=== PATIENT | male | born 1935 | race Caucasian/White ===

== ENCOUNTER 2021-01-01 11:17 | Inpatient (IN) | payer MEDICARE, OTHER ==
[2021-01-01 12:05] LABS: HCT 38.1 % (39.0-53.0); HGB 12.2 gm/dL (13.0-17.5); MCH 29.5 pg (25.0-35.0); MCHC 31.9 g/dL (31.0-37.0); MCV 92.5 fL (80.0-100.0); Mean Platelet Volume 7.2; Platelet Count 224 k/uL (150-450); RBC 4.12 m/uL (4.30-5.90); RDW 15.1 % (11.5-15.5); WBC 8.4 k/uL (3.8-10.6)
--- NOTE | 2021-01-01 12:21 | XR ---
EXAMINATION TYPE: XR foot limited RT DATE OF EXAM: 01/01/2021 COMPARISON: NONE HISTORY: 85-year-old male worsening cellulitis, concern for osteomyelitis. TECHNIQUE: 2 views FINDINGS: Marked diffuse soft tissue swelling. Small plantar heel spur. Vascular calcifications. There appears to be a nondisplaced fracture at the base of the fifth metatarsal. Allowing for the osteopenia, no de finite focal area of lytic destruction is identified. IMPRESSION: 1. Allowing for the marked osteopenia, no definite focal areas of lytic destruction are identified to suggest osteomyelitis on these 2 views. 2. Marked generalized soft tissue swelling. 3. Nondisplaced fracture at the base of the fifth metatarsal.
[2021-01-01 12:22] LABS: Albumin 3.2 g/dL (3.5-5.0); C Reactive Protein 6.5 mg/dL (<1.0); Calcium 8.6 mg/dL (8.4-10.2); Potassium 4.2 mmol/L (3.5-5.1); Total Bilirubin 0.4 mg/dL (0.2-1.3); Total Protein 6.4 g/dL (6.3-8.2)
[2021-01-01] MEDS ORDERED: traMADol 50 MG TAB PO STA (12:49)
--- NOTE | 2021-01-01 12:49 | ED ---
Wound/Laceration HPI - General Source: patient, EMS Mode of arrival: EMS Limitations: physical limitation <Alysa Wright - Last Filed: 01/01/21 13:23> <Santos Hernandez - Last Filed: 01/01/21 13:31> - General Chief Complaint: Wound/Laceration Stated Complaint: Infection Time Seen by Provider: 01/01/21 11:24 - History of Present Illness Initial Comments: Patient is an 85-year-old male, history of hypertension, kidney disease, presenting to the emergency department via EMS from [facility] on the [place] for worsening cellulitis of his right foot. Patient states he recovered from covid a few weeks ago and has been dealing with bilateral lower leg cellulitis. Patient was at [facility] for this cellulitis, receiving IV antibiotics in the past. He was admitted to [facility] on 12/23/20. Follows with Dr. Mcintosh. He has been on Augmentin for the last 9 days. Nurses at [facility] state that the infection in the right foot has worsened over the past 1-2 days as well as developing a strong odor. Patient is having pain in the medial aspect of the right foot. He denies any fevers, no chest pain or shortness of breath, no abdominal pain or nausea or vomiting. He has no further complaints at this time. Upon arrival to the ER, his vital signs are stable. Of note, patient is hard of hearing. (Alysa Wright) - Related Data Home Medications Medication Instructions Recorded Confirmed Acetaminophen Tab [Tylenol] 650 mg PO Q6H PRN 01/01/21 01/01/21 Amoxic-Pot Clav 875-125Mg 1 tab PO BID 01/01/21 01/01/21 [Augmentin 875-125] Aspirin EC [Ecotrin Low Dose] 81 mg PO DAILY 01/01/21 01/01/21 Furosemide [Lasix] 20 mg PO BID@0900,1700 01/01/21 01/01/21 Gabapentin [Neurontin] 100 mg PO BID 01/01/21 01/01/21 Magnesium Hydroxide [Milk of 2,400 mg PO DAILY PRN 01/01/21 01/01/21 Magnesia] Metoprolol Tartrate [Lopressor] 37.5 mg PO BID@0900,1700 01/01/21 01/01/21 Multivitamins, Thera [Multivitamin 1 tab PO DAILY 01/01/21 01/01/21 (formulary)] Pravastatin Sodium [Pravachol] 10 mg PO DAILY 01/01/21 01/01/21 amLODIPine [Norvasc] 10 mg PO DAILY 01/01/21 01/01/21 Allergies Allergy/AdvReac Type Severity Reaction Status Date / Time No Known Allergies Allergy Verified 01/01/21 12:46 Review of Systems ROS Other: All systems not noted in ROS Statement are negative. <Alysa Wright - Last Filed: 01/01/21 13:23> ROS Other: All systems not noted in ROS Statement are negative. <Santos Hernandez - Last Filed: 01/01/21 13:31> ROS Statement: Those systems with pertinent positive or pertinent negative responses have been documented in the HPI. Past Medical History Past Medical History: Hearing Disorder / Deafness, Hypertension, Renal Disease Additional Past Medical History / Comment(s): cellulitis right leg, [place]', right tibial fracture History of Any Multi-Drug Resistant Organisms: None Reported Past Surgical History: Bowel Resection, Hernia Repair, Orthopedic Surgery Additional Past Surgical History / Comment(s): Right shoulder, Right hip, bowel resection with colostomy reversal Past Psychological History: No Psychological Hx Reported Smoking Status: Former smoker Past Alcohol Use History: None Reported Past Drug Use History: None Reported <Alysa Wright - Last Filed: 01/01/21 13:23> General Exam Limitations: physical limitation <Alysa Wright - Last Filed: 01/01/21 13:23> - General Exam Comments Initial Comments: GENERAL: Patient is well-developed and well-nourished. Patient is nontoxic and in no acute distress. HEAD: Atraumatic, normocephalic. EYES: Pupils equal round and reactive to light, extraocular movements intact, sclera anicteric, conjunctiva are normal. Eyelids were unremarkable. ENT: TMs normal, nares patent, oropharynx clear without exudates. Moist mucous membranes. NECK: Normal range of motion, supple without lymphadenopathy or JVD. LUNGS: Unlabored respirations. Breath sounds clear to auscultation bilaterally and equal. No wheezes rales or rhonchi. HEART: Regular rate and rhythm without murmurs, rubs or gallops. ABDOMEN: Soft, nontender, normoactive bowel sounds. No guarding, no rebound. No masses appreciated. : Deferred MUSCULOSKELETAL: Left lower extremity is within normal limits, no signs of infection or pain at this time. Right lower extremity, has some erythema starting at the right lower leg extending into the right foot. Patient has significant pain with palpation of the right foot, cellulitis. No clubbing or cyanosis. NEUROLOGICAL: Patient is alert and oriented x 3. Motor and sensory are also intact. Cranial nerves II through XII grossly intact. Symmetrical smile. Normal speech, normal gait. PSYCH: Normal mood, normal affect. SKIN: Warm, Dry, normal turgor. Patient has cellulitis present on the right foot, multiple little ulcerations noted around the foot and toes. He does have a weak, bilateral dorsal pedis pulses. (Alysa Wright) Course Vital Signs 01/01/21 01/01/21 11:20 12:45 Temperature 98.1 F Pulse Rate 78 74 Respiratory 18 18 Rate Blood Pressure 162/75 147/68 O2 Sat by Pulse 98 97 Oximetry Medical Decision Making - Lab Data Result diagrams: 01/01/21 11:49 01/01/21 11:49 <Alysa Wright - Last Filed: 01/01/21 13:23> - Lab Data Result diagrams: 01/01/21 11:49 01/01/21 11:49 <Santos Hernandez - Last Filed: 01/01/21 13:31> - Medical Decision Making Patient is a 85-year-old male here via EMS from [facility] the [place] for worsening cellulitis of his right foot. He was previously admitted to [facility], admitted at [facility] and 12/23/2020. He is currently on day 9 of Augmentin, nurses state the infection seems to be worse over the past few days. Strong odor. He does have weak dorsal pedis pulses bilaterally. No fevers, his white count is stable at 8.4, ESR is 40, CRP is 6.5. Ultrasound is negative for DVT of the right lower extremity. Patient will be admitted for right foot cellulitis, failed outpatient treatment. We will start antibiotics. We will consult Dr. Mcintosh. Patient accepted by Dr. Hill. Case discussed with Dr. Hernandez. (Alysa Wright) Patient reevaluated and reexamined by myself, Dr. Hernandez. I agree with PAs findings. This includes diagnostic interpretation and treatment plan. (Santos Hernandez) - Lab Data Lab Results 01/01/21 01/01/21 01/01/21 Range/Units 11:49 11:49 11:49 WBC 8.4 (3.8-10.6) k/uL RBC 4.12 L (4.30-5.90) m/uL Hgb 12.2 L (13.0-17.5) gm/dL Hct 38.1 L (39.0-53.0) % MCV 92.5 (80.0-100.0) fL MCH 29.5 (25.0-35.0) pg MCHC 31.9 (31.0-37.0) g/dL RDW 15.1 (11.5-15.5) % Plt Count 224 (150-450) k/uL MPV 7.2 Neutrophils % (Manual) 70 % Lymphocytes % (Manual) 18 % Monocytes % (Manual) 11 % Eosinophils % (Manual) 1 % Neutrophils # (Manual) 5.88 (1.3-7.7) k/uL Lymphocytes # (Manual) 1.51 (1.0-4.8) k/uL Monocytes # (Manual) 0.92 (0-1.0) k/uL Eosinophils # (Manual) 0.08 (0-0.7) k/uL Nucleated RBCs 0 (0-0) /100 WBC Manual Slide Review Performed RBC Morphology Normal ESR 40 H (0-15) mm/hr Sodium 135 L (137-145) mmol/L Potassium 4.2 (3.5-5.1) mmol/L Chloride 101 (98-107) mmol/L Carbon Dioxide 27 (22-30) mmol/L Anion Gap 7 mmol/L BUN 22 H (9-20) mg/dL Creatinine 1.07 (0.66-1.25) mg/dL Est GFR (CKD-EPI)AfAm 73 (>60 ml/min/1.73 sqM) Est GFR (CKD-EPI)NonAf 63 (>60 ml/min/1.73 sqM) Glucose 106 H (74-99) mg/dL Plasma Lactic Acid Gerardo 1.6 (0.7-2.0) mmol/L Calcium 8.6 (8.4-10.2) mg/dL Total Bilirubin 0.4 (0.2-1.3) mg/dL AST 28 (17-59) U/L ALT 44 (4-49) U/L Alkaline Phosphatase 98 (38-126) U/L C-Reactive Protein 6.5 H (<1.0) mg/dL Total Protein 6.4 (6.3-8.2) g/dL Albumin 3.2 L (3.5-5.0) g/dL Disposition Is patient prescribed a controlled substance at d/c from ED?: No Decision Date: 01/01/21 Decision Time: 13:24 <Alysa Wright - Last Filed: 01/01/21 13:23> <Santos Hernandez - Last Filed: 01/01/21 13:31> Clinical Impression: Cellulitis of right foot, Failure of outpatient treatment Disposition: ADMITTED IP TO THIS [facility] Condition: Stable Referrals: Raji Hernández MD [Primary Care Provider] - 1-2 days
[2021-01-01 12:58] LABS: Eosinophils # (M) 0.08 k/uL (0-0.7); Lymphocytes # (M) 1.51 k/uL (1.0-4.8); Monocytes # (M) 0.92 k/uL (0-1.0); Neutrophils # (M) 5.88 k/uL (1.3-7.7); Neutrophils % (M) 70 %; Nucleated Red Blood Cells 0 /100 WBC (0-0); Total Cells Counted 100
[2021-01-01 13:06] LABS: Erythrocyte Sedimentation Rate 40 mm/hr (0-15)
--- NOTE | 2021-01-01 13:23 | US ---
EXAMINATION TYPE: US venous doppler duplex LE RT DATE OF EXAM: 01/01/2021 1:14 PM COMPARISON: NONE CLINICAL HISTORY: 85-year-old male Worsening cellulitis right foot, edema. Cellulitis right foot x fe w months. SIDE PERFORMED: Right TECHNIQUE: The lower extremity deep venous system is examined utilizing real time linear array sonog john with graded compression, doppler sonography and color-flow sonography. FINDINGS: VESSELS IMAGED: Common Femoral Vein Deep Femoral Vein Greater Saphenous Vein * Femoral Vein Popliteal Vein Small Saphenous Vein * Proximal Calf Veins (* superficial vessels) Right Leg: Negative for DVT IMPRESSION: No evidence for DVT within the right lower extremity imaged from the groin to the upper calf. Prominent subcutaneous edema noted at and below the knee.
[2021-01-01] MEDS ORDERED: traMADol 50 MG TAB PO PRN (13:27)
[2021-01-01] MEDS ORDERED: ACETAMINOPHEN TAB 325 MG TAB PO PRN (13:27)
[2021-01-01] MEDS ORDERED: NALOXONE 0.4 MG/ML 1 ML VIAL IV PRN (13:27)
[2021-01-01] MEDS ORDERED: cefTRIAXone IN SWFI 1,000 MG/10 ML SYRINGE IVP STA (13:28)
[2021-01-01] MEDS ORDERED: VANCOMYCIN IV PER PHARMACY 1 EACH MISC MISCELLANE PRN (13:28)
[2021-01-01] MEDS ORDERED: VANCOMYCIN 1,500 MG in SODIUM CHLORIDE 0.9% 250 ML IVPB ONE (14:00)
[2021-01-01] MEDS ORDERED: MAGNESIUM HYDROXIDE 2,400 MG/10 ML CUP PO PRN (16:06)
[2021-01-01] MEDS: FUROSEMIDE 20 MG TAB PO SCH (17:09)
[2021-01-01] MEDS: METOPROLOL TARTRATE 12.5 MG TAB PO SCH (17:10)
[2021-01-01] MEDS: IBUPROFEN 400 MG TAB PO PRN (17:13)
[2021-01-01] MEDS: GABAPENTIN 100 MG CAP PO SCH (21:34)
[2021-01-01] MEDS: HEPARIN SODIUM,PORCINE/PF 5,000 UNIT/0.5 ML SYRINGE SQ SCH (23:31)
--- NOTE | 2021-01-01 23:56 | P.HPIM ---
History of Present Illness H&P Date: 01/01/21 Chief Complaint: Right foot infection Patient is a 85-year-old male with a known history of hearing disorder/deafness, hypertension, hyperlipidemia, recent history of COVID-19 infection was sent to hospital from [facility] on the [place] due to worsening right foot redness, cellulitis and swelling. Patient was recalled from COVID-19 infection recently. Patient was was admitted to [facility] due to right lower extremity cellulitis. He was continued on IV antibiotics and p sent to [facility] care [facility]. Currently being continued on antibiotics in the form of Augmentin. For the past 1 to 2 days right lower extremity swelling redness is worsening and developing strong odor as per nursing staff. Patient is also having increased pain. Was sent to ER for evaluation. Otherwise patient does not have any fever or chills. No chest pain or shortness. No cough or sputum production. On admission blood pressure is 162/75 pulse is a 78 afebrile and pulse ox 98% on room air. Venous Doppler showed no evidence of DVT in the right lower extremity from the groin to the upper calf. Laboratory data showed WBC 8.4 hemoglobin 12.2 platelets 224 ESR 40 Sodium 135 potassium 4.2 bicarb 27 BUN 22 and creatinine 1.07 CRP 6.5 Albumin 3.2 Foot x-ray showed mild osteopenia. No definite focal areas of lytic destruction are identified to suggest osteomyelitis on those 2 views. Marked generalized soft tissue swelling. Nondisplaced fracture of the base of the fifth metatarsal. Review of Systems Constitutional: Patient denies any fever or chills . No generalized weakness or weight loss. Abdomen: Patient denied nausea vomiting and diarrhea and abdominal pain. Cardiovascular: Patient denies any chest pain or short of breath no palpitations. Respiratory: patient denied any cough or sputum production. No shortness of breath Neurologic: Patient denied any numbness or tingling headache. Musculoskeletal: Patient denies any complaints of joint swelling or deformity.Right foot pain \Complete review of systems could not be obtained from the patient except as per HPI Past Medical History Past Medical History: Hearing Disorder / Deafness, Hyperlipidemia, Hypertension, Renal Disease Additional Past Medical History / Comment(s): cellulitis right leg, [place]- no ai irineo, right tibial fracture, covid19, atherosclerosis heart disease, hypoxia w/respiratory failure, CAD, patient alert and oriented x4- with periods of confusion, abdominal heria History of Any Multi-Drug Resistant Organisms: None Reported Past Surgical History: Bowel Resection, Hernia Repair, Orthopedic Surgery Additional Past Surgical History / Comment(s): Right shoulder, Right hip, bowel resection with colostomy reversal. Past Anesthesia/Blood Transfusion Reactions: No Reported Reaction Past Psychological History: No Psychological Hx Reported Smoking Status: Former smoker Past Alcohol Use History: None Reported Past Drug Use History: None Reported - Past Family History Father History Unknown: Yes Mother History Unknown: Yes Medications and Allergies Home Medications Medication Instructions Recorded Confirmed Type Acetaminophen Tab [Tylenol] 650 mg PO Q6H PRN 01/01/21 01/01/21 History Amoxic-Pot Clav 875-125Mg 1 tab PO BID 01/01/21 01/01/21 History [Augmentin 875-125] Aspirin EC [Ecotrin Low Dose] 81 mg PO DAILY 01/01/21 01/01/21 History Furosemide [Lasix] 20 mg PO BID@0900,1700 01/01/21 01/01/21 History Gabapentin [Neurontin] 100 mg PO BID 01/01/21 01/01/21 History Magnesium Hydroxide [Milk of 2,400 mg PO DAILY PRN 01/01/21 01/01/21 History Magnesia] Metoprolol Tartrate [Lopressor] 37.5 mg PO BID@0900,1700 01/01/21 01/01/21 History Multivitamins, Thera [Multivitamin 1 tab PO DAILY 01/01/21 01/01/21 History (formulary)] Pravastatin Sodium [Pravachol] 10 mg PO DAILY 01/01/21 01/01/21 History amLODIPine [Norvasc] 10 mg PO DAILY 01/01/21 01/01/21 History Allergies Allergy/AdvReac Type Severity Reaction Status Date / Time No Known Allergies Allergy Verified 01/01/21 12:46 Physical Exam Vitals: Vital Signs Temp Pulse Pulse Resp BP BP Pulse Ox 01/01/21 20:00 97.6 F 65 17 160/62 96 01/01/21 12:45 74 18 147/68 97 01/01/21 11:20 98.1 F 78 18 162/75 98 Intake and Output 01/01/21 01/01/21 01/01/21 06:59 14:59 22:59 Output Total 500 Balance -500 Output: Urine/Stool Mix 500 Other: Weight 99.79 kg 99.79 kg PHYSICAL EXAMINATION: Patient is lying in the bed comfortably, no acute distress, awake alert and oriented..Hard of hearing. HEENT: Normocephalic. Neck is supple. Pupils reactive. Nostrils clear. Oral cavity is moist. Ears reveal no drainage. Neck reveals no JVD, carotid bruits, or thyromegaly. CHEST EXAMINATION: Trachea is central. Symmetrical expansion. Bibasilar diminished sounds. No wheezing no rhonchi or crackles.. CARDIAC: Normal S1, S2 with no gallops. No murmurs ABDOMEN: Soft. Bowel sounds normal. No organomegaly. No abdominal bruits. Extremities: Bilateral lower extremity swelling. Right lower extremity with more swelling and redness extending up to the knee with some drainage noted at the right foot. Tender to palpation. No clubbing or cyanosis Neurologically awake, alert, oriented x3 with well-coordinated movements. No focal deficits noted Skin: No rash or skin lesions. Psychiatric: Coperative. Nonsuicidal Musculoskeletal: No joint swelling or deformity. Normal range of motion. Results CBC & Chem 7: 01/03/21 06:10 01/03/21 06:10 Labs: Abnormal Lab Results - Last 24 Hours (Table) 01/01/21 01/01/21 Range/Units 11:49 11:49 RBC 4.12 L (4.30-5.90) m/uL Hgb 12.2 L (13.0-17.5) gm/dL Hct 38.1 L (39.0-53.0) % ESR 40 H (0-15) mm/hr Sodium 135 L (137-145) mmol/L BUN 22 H (9-20) mg/dL Glucose 106 H (74-99) mg/dL C-Reactive Protein 6.5 H (<1.0) mg/dL Albumin 3.2 L (3.5-5.0) g/dL Thrombosis Risk Factor Assmnt - DVT/VTE Prophylaxis DVT/VTE Prophylaxis: Pharmacologic Prophylaxis ordered - Choose All That Apply Any of the Below Risk Factors Present?: Yes Each Factor Represents 1 point: Swollen legs (current) Each Risk Factor Represents 3 Points: Age 75 years or older Thrombosis Risk Factor Assessment Total Risk Factor Score: 4 Thrombosis Risk Factor Assessment Level: Moderate Risk Assessment and Plan Assessment: Right lower extremity extensive cellulitis. Failed outpatient antibiotic therapy. Nondisplaced fracture of the base of the fifth metatarsal. Recent history of COVID-19 infection Hearing disorder/deafness Hypertension Hyperlipidemia Previous history of smoking DVT prophylaxis with heparin subcu Plan: Patient will be continued on antibiotics in the form of Vanco. Wound cultures will be sent. ID will be consulted. Continue with home blood pressure medications and follow-up CBC and BMP tomorrow. Continue to follow closely and further recommendations based on the clinical course. Time with Patient: Greater than 30
[2021-01-02] MEDS: IBUPROFEN 400 MG TAB PO PRN ×2 (02:27→12:57)
[2021-01-02] MEDS ORDERED: VANCOMYCIN 1,500 MG in SODIUM CHLORIDE 0.9% 250 ML IVPB SCH (06:00)
[2021-01-02] MEDS: ASPIRIN 81 MG PO SCH (09:46)
[2021-01-02] MEDS: MULTIVITAMINS, THERA 1 EACH TAB PO SCH (09:46)
[2021-01-02] MEDS: METOPROLOL TARTRATE 12.5 MG TAB PO SCH ×2 (09:46→15:55)
[2021-01-02] MEDS: amLODIPine 10 MG TAB PO SCH (09:46)
[2021-01-02] MEDS: HEPARIN SODIUM,PORCINE/PF 5,000 UNIT/0.5 ML SYRINGE SQ SCH ×2 (09:46→15:55)
[2021-01-02] MEDS: GABAPENTIN 100 MG CAP PO SCH ×2 (09:46→21:28)
[2021-01-02] MEDS: PRAVASTATIN SODIUM 20 MG TAB PO SCH (09:46)
[2021-01-02] MEDS: FUROSEMIDE 20 MG TAB PO SCH ×2 (09:46→15:55)
[2021-01-02] MEDS ORDERED: NYSTAT-TRIAMCIN 100,000-0.1 UNIT/GM-% CREAM 30 GM TUBE TOPICAL SCH (21:00)
--- NOTE | 2021-01-02 21:59 | P.CONS ---
History of Present Illness - Reason for Consult Consult date: 01/02/21 right foot cellulitis Requesting physician: Jacky Hill - Chief Complaint right foot pain , swelling redness x few days - History of Present Illness Patient is 85-year-old male was recently admitted at [facility] and treated for right foot wound and cellulitis patient subsequent discharged to the [facility]. Patient has been brought to [facility] ER yesterday with concern for worsening cellulitis of his right foot nursing at the [facility] right foot was getting worse for the last 2 days and patient developing a strong odor to it patient complaining of pain in the medial aspect of his right foot to be more of a dull aching 3-4 out of 10 in radiation patient denies any chest pain shortness of breath or cough abdominal pain or diarrhea on arrival to the ER the patient was afebrile and no fever has been recorded subsequently patient did have a normal white count creatinine was normal at 1.0 700% of normal holt PCR came back negative patient did have a cultures obtained from the right foot patient was started on vancomycin infectious was consulted for further management of antibiotic therapy patient presented with a very good historian so most information has been extracted from review the chart and talking nursing staff. Review of Systems Positive point has been mentioned in HPI rest of the systems are negative Past Medical History Past Medical History: Hearing Disorder / Deafness, Hyperlipidemia, Hypertension, Renal Disease Additional Past Medical History / Comment(s): cellulitis right leg, [place]- no aides, right tibial fracture, covid19, atherosclerosis heart disease, hypoxia w/respiratory failure, CAD, patient alert and oriented x4- with periods of confusion, abdominal heria History of Any Multi-Drug Resistant Organisms: None Reported Past Surgical History: Bowel Resection, Hernia Repair, Orthopedic Surgery Additional Past Surgical History / Comment(s): Right shoulder, Right hip, bowel resection with colostomy reversal. Past Anesthesia/Blood Transfusion Reactions: No Reported Reaction Past Psychological History: No Psychological Hx Reported Smoking Status: Former smoker Past Alcohol Use History: None Reported Past Drug Use History: None Reported - Past Family History Father History Unknown: Yes Mother History Unknown: Yes Medications and Allergies Home Medications Medication Instructions Recorded Confirmed Type Acetaminophen Tab [Tylenol] 650 mg PO Q6H PRN 01/01/21 01/01/21 History Amoxic-Pot Clav 875-125Mg 1 tab PO BID 01/01/21 01/01/21 History [Augmentin 875-125] Aspirin EC [Ecotrin Low Dose] 81 mg PO DAILY 01/01/21 01/01/21 History Furosemide [Lasix] 20 mg PO BID@0900,1700 01/01/21 01/01/21 History Gabapentin [Neurontin] 100 mg PO BID 01/01/21 01/01/21 History Magnesium Hydroxide [Milk of 2,400 mg PO DAILY PRN 01/01/21 01/01/21 History Magnesia] Metoprolol Tartrate [Lopressor] 37.5 mg PO BID@0900,1700 01/01/21 01/01/21 History Multivitamins, Thera [Multivitamin 1 tab PO DAILY 01/01/21 01/01/21 History (formulary)] Pravastatin Sodium [Pravachol] 10 mg PO DAILY 01/01/21 01/01/21 History amLODIPine [Norvasc] 10 mg PO DAILY 01/01/21 01/01/21 History Allergies Allergy/AdvReac Type Severity Reaction Status Date / Time No Known Allergies Allergy Verified 01/01/21 12:46 Physical Exam Vitals: Vital Signs Temp Pulse Resp BP Pulse Ox 01/02/21 12:24 97.6 F 56 L 18 142/61 98 01/02/21 08:00 73 18 01/02/21 04:44 98.2 F 73 18 162/71 97 01/01/21 20:00 97.6 F 65 17 160/62 96 Intake and Output 01/02/21 01/02/21 01/02/21 06:59 14:59 22:59 Intake Total 240 Balance 240 Intake: Oral 240 Other: Voiding Method Bedside Commode Urinal # Voids 2 3 # Bowel Movements 1 GENERAL DESCRIPTION: Elderly male lying in bed, no distress. No tachypnea or accessory muscle of respiration use. HEENT: Shows Pallor , no scleral icterus. Oral mucous membrane is dry. NECK: Trachea central, no thyromegaly. LUNGS: Unlabored breathing. Clear to auscultation anteriorly. No wheeze or crackle. HEART: S1, S2, regular rate and rhythm. ABDOMEN: Soft, no tenderness , guarding or rigidity EXTREMITIES: Right foot with superficial ulceration and swelling redness minimal drainage. SKIN: No rash, no masses palpable. NEUROLOGICAL: The patient is awake, alert, oriented x2, mood and affect normal. Results CBC & Chem 7: 01/01/21 11:49 01/02/21 06:01 Labs: Microbiology - Last 24 Hours (Table) 01/01/21 11:50 Blood Culture - Preliminary Blood No Growth after 24 hours 01/01/21 16:30 Gram Stain - Preliminary Foot - Right Wound Culture - Preliminary 01/01/21 16:30 Anaerobic Culture - Preliminary Foot - Right Assessment and Plan Assessment: patient with right foot cellulitis this patient who did have diffuse swelling redness and some superficial ulceration and has been outpatient oral Augmentin therapy with concern for possible resistant gram-positive or gram-negative pathogen) did have a component of fungal dermatitis (1) Cellulitis of right foot Current Visit: Yes Status: Acute Code(s): L03.115 - CELLULITIS OF RIGHT LOWER LIMB SNOMED Code(s): 271408010 (2) Failure of outpatient treatment Current Visit: Yes Status: Acute Code(s): Z78.9 - OTHER SPECIFIED HEALTH STATUS SNOMED Code(s): 571216472 Plan: 1-vancomycin pharmacy to dose her with a target trough of 15 while watching her kidney function and Vanco trough closely. 2-local wound care with Mycolog cream twice daily We will follow on clinical condition and cultures to further adjust medication if needed Thank you for this consultation we will follow the patient along with you Time with Patient: Greater than 30
[2021-01-02] MEDS ORDERED: VANCOMYCIN 1,750 MG in SODIUM CHLORIDE 0.9% 500 ML 500 ML IVPB SCH (22:00)
[2021-01-02] MEDS: NYSTATIN 100,000UNIT/GM CREAM 30 GM TUBE TOPICAL SCH (22:10)
[2021-01-02] MEDS: TRIAMCINOLONE 0.1% CREAM 80 GM TUBE TOPICAL SCH (22:10)
[2021-01-02] MEDS: CEFEPIME 2 GM in SODIUM CHLORIDE 0.9% 100 ML IVPB SCH (22:30)
[2021-01-03] MEDS: HEPARIN SODIUM,PORCINE/PF 5,000 UNIT/0.5 ML SYRINGE SQ SCH ×4 (00:53→23:07)
[2021-01-03 06:44] LABS: HCT 36.1 % (39.0-53.0); HGB 12.4 gm/dL (13.0-17.5); MCH 31.4 pg (25.0-35.0); MCHC 34.4 g/dL (31.0-37.0); MCV 91.1 fL (80.0-100.0); Mean Platelet Volume 6.8; Platelet Count 216 k/uL (150-450); RBC 3.96 m/uL (4.30-5.90); RDW 14.5 % (11.5-15.5); WBC 6.5 k/uL (3.8-10.6)
[2021-01-03 07:33] LABS: Basophils # (M) 0.13 k/uL (0-0.2); Eosinophils # (M) 0.59 k/uL (0-0.7); Lymphocytes # (M) 2.15 k/uL (1.0-4.8); Monocytes # (M) 0.78 k/uL (0-1.0); Neutrophils # (M) 2.86 k/uL (1.3-7.7); Neutrophils % (M) 44 %; Nucleated Red Blood Cells 0 /100 WBC (0-0); Total Cells Counted 100
[2021-01-03] MEDS: amLODIPine 10 MG TAB PO SCH (09:12)
[2021-01-03] MEDS: PRAVASTATIN SODIUM 20 MG TAB PO SCH (09:12)
[2021-01-03] MEDS: GABAPENTIN 100 MG CAP PO SCH ×2 (09:12→20:58)
[2021-01-03] MEDS: FUROSEMIDE 20 MG TAB PO SCH ×2 (09:12→16:11)
[2021-01-03] MEDS: MULTIVITAMINS, THERA 1 EACH TAB PO SCH (09:13)
[2021-01-03] MEDS: CEFEPIME 2 GM in SODIUM CHLORIDE 0.9% 100 ML IVPB SCH ×2 (09:13→20:57)
[2021-01-03] MEDS: ASPIRIN 81 MG PO SCH (09:13)
[2021-01-03] MEDS: METOPROLOL TARTRATE 12.5 MG TAB PO SCH ×2 (09:13→16:11)
[2021-01-03] MEDS: NYSTATIN 100,000UNIT/GM CREAM 30 GM TUBE TOPICAL SCH ×2 (09:14→20:58)
[2021-01-03] MEDS: TRIAMCINOLONE 0.1% CREAM 80 GM TUBE TOPICAL SCH ×2 (09:14→20:58)
[2021-01-03 11:28] LABS: African American GFR (CKD) 70.1 (60.0-200.0); Anion Gap 5.2 mmol/L (4.00-12.00); BUN/Creat Ratio 18.18 Ratio (12.00-20.00); Calcium 8.7 mg/dL (8.7-10.3); Carbon Dioxide 28.8 mmol/L (21.6-31.8); Non-African American GFR(CKD) 60.5 (60.0-200.0); Potassium 4.1 mmol/L (3.5-5.5)
--- NOTE | 2021-01-03 16:55 | PN ---
PROGRESS NOTE DATE OF SERVICE: 01/03/2021 REASON FOR FOLLOWUP: Right foot cellulitis. INTERVAL HISTORY: The patient is currently afebrile. The patient mentioned not feeling better as far as is concerned. No chest pain, cough. No abdominal pain. No diarrhea. EXAMINATION: Blood pressure is 147/58, pulse of 59, temperature is 98, she is 93% on room air. General description: The patient is an elderly male up in the chair in no distress. Respiratory system: Unlabored breathing, clear to auscultation anteriorly. Heart S1, S2. Regular rate and rhythm. Abdomen soft, no tenderness. Right foot is currently drying out. Redness has decreased. No drainage. LABS: Hemoglobin is 12.1, white count 6.5. Wound culture showing Gram-negative bacilli and nonhemolytic strep. DIAGNOSTIC IMPRESSION AND PLAN: Patient with right foot ulceration, cellulitis, culture with gram-negative and not hemolytic strep. Antibiotic adjusted to cefepime. Local care with Mycolog cream. Avoid non-adhesive dressing and continue supportive care. MMODL / IJN: [id number] /
--- NOTE | 2021-01-04 01:23 | P.PN ---
Subjective Progress Note Date: 01/02/21 Principal diagnosis: Right lower extremity extensive cellulitis. Patient is a 85-year-old male with a known history of hearing disorder/deafness, hypertension, hyperlipidemia, recent history of COVID-19 infection was sent to hospital from [facility] on the leg due to worsening right foot redness, cellulitis and swelling. Patient was recalled from COVID-19 infection recently. Patient was was admitted to [facility] due to right lower extremity cellulitis. He was continued on IV antibiotics and p sent to [facility]. Currently being continued on antibiotics in the form of Augmentin. For the past 1 to 2 days right lower extremity swelling redness is worsening and developing strong odor as per nursing staff. Patient is also having increased pain. Was sent to ER for evaluation. Otherwise patient does not have any fever or chills. No chest pain or shortness. No cough or sputum production. On admission blood pressure is 162/75 pulse is a 78 afebrile and pulse ox 98% on room air. Venous Doppler showed no evidence of DVT in the right lower extremity from the groin to the upper calf. Laboratory data showed WBC 8.4 hemoglobin 12.2 platelets 224 ESR 40 Sodium 135 potassium 4.2 bicarb 27 BUN 22 and creatinine 1.07 CRP 6.5 Albumin 3.2 Foot x-ray showed mild osteopenia. No definite focal areas of lytic destruction are identified to suggest osteomyelitis on those 2 views. Marked generalized soft tissue swelling. Nondisplaced fracture of the base of the fifth metatarsal. 01/02/2021 Patient is currently resting in the bed comfortably. Still having right foot redness and swelling and weeping serous discharge. Patient has been afebrile. Continued on antibiotics in the form of vancomycin. Wound cultures are pending. No complaints of chest pain or shortness breath. No nausea vomiting or abdominal pain. Patient is tolerating oral diet. Laboratory tests showed creatinine 1.06 ID is on board. Continue with wound dressing. Current medications reviewed Objective - Vital Signs Vital signs: Vital Signs Temp 98.0 F 01/02/21 20:00 Pulse 56 L 01/02/21 20:00 Resp 16 01/02/21 20:00 BP 136/63 01/02/21 20:00 Pulse Ox 94 L 01/02/21 20:00 Intake & Output 01/02/21 01/02/21 01/03/21 06:59 18:59 06:59 Intake Total 240 Output Total 500 Balance -500 240 Intake: Oral 240 Output: Urine/Stool Mix 500 Other: Voiding Method Bedside Commode Bedside Commode Urinal Urinal # Voids 2 3 1 # Bowel Movements 1 1 - Exam PHYSICAL EXAMINATION: Patient is lying in the bed comfortably, no acute distress, awake alert and oriented..Hard of hearing. HEENT: Normocephalic. Neck is supple. Pupils reactive. Nostrils clear. Oral cavity is moist. Ears reveal no drainage. Neck reveals no JVD, carotid bruits, or thyromegaly. CHEST EXAMINATION: Trachea is central. Symmetrical expansion. Bibasilar diminished sounds. No wheezing no rhonchi or crackles.. CARDIAC: Normal S1, S2 with no gallops. No murmurs ABDOMEN: Soft. Bowel sounds normal. No organomegaly. No abdominal bruits. Extremities: Bilateral lower extremity swelling. Right lower extremity with mor e swelling and redness extending up to the knee with some drainage noted at the right foot. Tender to palpation. No clubbing or cyanosis Neurologically awake, alert, oriented x3 with well-coordinated movements. No focal deficits noted Skin: No rash or skin lesions. Psychiatric: Coperative. Nonsuicidal Musculoskeletal: No joint swelling or deformity. Normal range of motion. - Labs CBC & Chem 7: 01/03/21 06:10 01/03/21 06:10 Labs: Microbiology - Last 24 Hours (Table) 01/01/21 16:30 Gram Stain - Preliminary Foot - Right Wound Culture - Preliminary Gram Neg Bacilli Non Hemolytic Strep 01/01/21 11:50 Blood Culture - Preliminary Blood No Growth after 24 hours 01/01/21 16:30 Anaerobic Culture - Preliminary Foot - Right Assessment and Plan Assessment: Right lower extremity extensive cellulitis. Failed outpatient antibiotic therapy. Nondisplaced fracture of the base of the fifth metatarsal. Recent history of COVID-19 infection Hearing disorder/deafness Hypertension Hyperlipidemia Previous history of smoking DVT prophylaxis with heparin subcu Plan: Patient will be continued on antibiotics in the form ofvancomycin. Wound cultures will be sent. ID is following. Continue with home blood pressure medications and follow-up CBC and BMP tomorr ow. Continue to follow closely and further recommendations based on the clinical course. Time with Patient: Greater than 30
--- NOTE | 2021-01-04 01:32 | P.PN ---
Subjective Progress Note Date: 01/03/21 Principal diagnosis: Right lower extremity extensive cellulitis. Patient is a 85-year-old male with a known history of hearing disorder/deafness, hypertension, hyperlipidemia, recent history of COVID-19 infection was sent to hospital from [facility] on the leg due to worsening right foot redness, cellulitis and swelling. Patient was recalled from COVID-19 infection recently. Patient was was admitted to [facility] due to right lower extremity cellulitis. He was continued on IV antibiotics and p sent to [facility]. Currently being continued on antibiotics in the form of Augmentin. For the past 1 to 2 days right lower extremity swelling redness is worsening and developing strong odor as per nursing staff. Patient is also having increased pain. Was sent to ER for evaluation. Otherwise patient does not have any fever or chills. No chest pain or shortness. No cough or sputum production. On admission blood pressure is 162/75 pulse is a 78 afebrile and pulse ox 98% on room air. Venous Doppler showed no evidence of DVT in the right lower extremity from the groin to the upper calf. Laboratory data showed WBC 8.4 hemoglobin 12.2 platelets 224 ESR 40 Sodium 135 potassium 4.2 bicarb 27 BUN 22 and creatinine 1.07 CRP 6.5 Albumin 3.2 Foot x-ray showed mild osteopenia. No definite focal areas of lytic destruction are identified to suggest osteomyelitis on those 2 views. Marked generalized soft tissue swelling. Nondisplaced fracture of the base of the fifth metatarsal. 01/02/2021 Patient is currently resting in the bed comfortably. Still having right foot redness and swelling and weeping serous discharge. Patient has been afebrile. Continued on antibiotics in the form of vancomycin. Wound cultures are pending. No complaints of chest pain or shortness breath. No nausea vomiting or abdominal pain. Patient is tolerating oral diet. Laboratory tests showed creatinine 1.06 ID is on board. Continue with wound dressing. 01/03/2021 Patient was admitted to the hospital due to right foot cellulitis and failed outpatient antibiotic therapy. Patient was continued on vancomycin. Wound culture showed Pseudomonas species. Antibiotics changed to cefepime now. ID is following. Foot swelling and redness is improving. Continue with the dressing changes. Patient has been afebrile. Laboratory data showed WBC 6.5 hemoglobin 12.4 and platelets 216 BUN 20 and creatinine 1.1 Current medications reviewed. Current medications reviewed Objective - Vital Signs Vital signs: Vital Signs Temp 99.0 F 01/03/21 20:00 Pulse 65 01/03/21 20:00 Resp 16 01/03/21 20:00 BP 151/64 01/03/21 20:00 Pulse Ox 97 01/03/21 20:00 Intake & Output 01/03/21 01/03/21 01/04/21 06:59 18:59 06:59 Intake Total 350 420 Balance 350 420 Intake: Intake, IV Titration 100 Amount Cefepime 2 gm In Sodium 100 Chloride 0.9% 100 ml @ 25 mls/hr IVPB Q12HR [facility] Rx #:[id number] Oral 250 420 Other: Voiding Method Bedside Commode Bedside Commode Urinal Urinal # Voids 2 3 1 # Bowel Movements 1 - Exam PHYSICAL EXAMINATION: Patient is lying in the bed comfortably, no acute distress, awake alert and oriented..Hard of hearing. HEENT: Normocephalic. Neck is supple. Pupils reactive. Nostrils clear. Oral cavity is moist. Ears reveal no drainage. Neck reveals no JVD, carotid bruits, or thyromegaly. CHEST EXAMINATION: Trachea is central. Symmetrical expansion. Bibasilar diminished sounds. No wheezing no rhonchi or crackles.. CARDIAC: Normal S1, S2 with no gallops. No murmurs ABDOMEN: Soft. Bowel sounds normal. No organomegaly. No abdominal bruits. Extremities: Right foot redness and swelling. Mild tenderness. Improving. No purulent discharge noted. Right foot is wrapped. No clubbing or cyanosis Neurologically awake, alert, oriented x3 with well-coordinated movements. No focal deficits noted Skin: No rash or skin lesions. Psychiatric: Coperative. Nonsuicidal Musculoskeletal: No joint swelling or deformity. Normal range of motion. - Labs CBC & Chem 7: 01/03/21 06:10 01/03/21 06:10 Labs: Abnormal Lab Results - Last 24 Hours (Table) 01/03/21 Range/Units 06:10 RBC 3.96 L (4.30-5.90) m/uL Hgb 12.4 L (13.0-17.5) gm/dL Hct 36.1 L (39.0-53.0) % Microbiology - Last 24 Hours (Table) 01/01/21 16:30 Gram Stain - Preliminary Foot - Right Wound Culture - Preliminary Pseudomonas aeruginosa Non Hemolytic Strep 01/01/21 11:50 Blood Culture - Preliminary Blood No Growth after 48 hours Assessment and Plan Assessment: Right lower extremity extensive cellulitis. Failed outpatient antibiotic therapy. Nondisplaced fracture of the base of the fifth metatarsal. Recent history of COVID-19 infection Hearing disorder/deafness Hypertension Hyperlipidemia Previous history of smoking DVT prophylaxis with heparin subcu Plan: Patient will be continued cefepime with wound culture showing Pseudomonas.Vancomycin has been discontinued. ID is following. Continue with wound care and dressing changes. Continue with home blood pressure medications and follow-up CBC and BMP tomorrow. Continue to follow closely and further recommendations based on the clinical course. Time with Patient: Greater than 30
[2021-01-04 07:39] LABS: Basophils # (A) 0.1 k/uL (0-0.2); Basophils % (A) 1 %; Eosinophils # (A) 0.6 k/uL (0-0.7); Eosinophils % (A) 10 %; HCT 37.3 % (39.0-53.0); HGB 12.3 gm/dL (13.0-17.5); Lymphocytes # (A) 2.1 k/uL (1.0-4.8); Lymphocytes % (A) 35 %; MCH 30.6 pg (25.0-35.0); MCHC 33.1 g/dL (31.0-37.0); MCV 92.4 fL (80.0-100.0); Mean Platelet Volume 7.1; Monocytes # (A) 0.5 k/uL (0-1.0); Monocytes % (A) 8 %; Neutrophils # (A) 2.4 k/uL (1.3-7.7); Neutrophils % (A) 39 %; Platelet Count 220 k/uL (150-450); RBC 4.04 m/uL (4.30-5.90); RDW 15.1 % (11.5-15.5)
[2021-01-04] MEDS: HEPARIN SODIUM,PORCINE/PF 5,000 UNIT/0.5 ML SYRINGE SQ SCH ×3 (09:12→23:29)
[2021-01-04] MEDS: CEFEPIME 2 GM in SODIUM CHLORIDE 0.9% 100 ML IVPB SCH ×2 (09:13→20:05)
[2021-01-04] MEDS: MULTIVITAMINS, THERA 1 EACH TAB PO SCH (09:13)
[2021-01-04] MEDS: FUROSEMIDE 20 MG TAB PO SCH ×2 (09:13→16:36)
[2021-01-04] MEDS: amLODIPine 10 MG TAB PO SCH (09:13)
[2021-01-04] MEDS: GABAPENTIN 100 MG CAP PO SCH ×2 (09:13→20:05)
[2021-01-04] MEDS: ASPIRIN 81 MG PO SCH (09:13)
[2021-01-04] MEDS: PRAVASTATIN SODIUM 20 MG TAB PO SCH (09:16)
[2021-01-04] MEDS: METOPROLOL TARTRATE 12.5 MG TAB PO SCH ×2 (09:16→16:35)
[2021-01-04] MEDS: NYSTATIN 100,000UNIT/GM CREAM 30 GM TUBE TOPICAL SCH ×2 (09:17→19:30)
[2021-01-04] MEDS: TRIAMCINOLONE 0.1% CREAM 80 GM TUBE TOPICAL SCH ×2 (09:18→19:30)
[2021-01-04 10:32] LABS: Eosinophils # (M) 0.66 k/uL (0-0.7); Lymphocytes # (M) 1.68 k/uL (1.0-4.8); Monocytes # (M) 0.36 k/uL (0-1.0); Neutrophils % (M) 55 %; Nucleated Red Blood Cells 0 /100 WBC (0-0); Total Cells Counted 100
[2021-01-04 11:25] LABS: African American GFR (CKD) 78.6 (60.0-200.0); Anion Gap 4.6 mmol/L (4.00-12.00); Calcium 8.4 mg/dL (8.7-10.3); Carbon Dioxide 29.4 mmol/L (21.6-31.8); Non-African American GFR(CKD) 67.8 (60.0-200.0); Potassium 4.3 mmol/L (3.5-5.5)
--- NOTE | 2021-01-04 16:31 | P.GSCN ---
History of Present Illness History of present illness: 85-year-old gentleman came to the emergency room with cellulitis of the right foot. Patient has a covert positive few weeks ago patient has history of hypertension coronary artery disease and chronic kidney disease. Consulted for reevaluation of the right foot patient is under care of infectious disease for IV antibiotic and local wound care Neck examination neck is supple no bruit appreciated Chest is clear first and second sound present air entry is good and both lungs Abdomen soft nontender femoral 1+ PTDP not palpable right foot is warm no ischemic ulcer noted patient has a cellulitis and some dry scab present on the dorsal aspect of the foot Plan is we will use Dakin solution to rinse the right foot and covered with Kerlix daily for follow with you Past Medical History Past Medical History: Hearing Disorder / Deafness, Hyperlipidemia, Hypertension, Renal Disease Additional Past Medical History / Comment(s): cellulitis right leg, [place] JOLLA- no aides, right tibial fracture, covid19, atherosclerosis heart disease, hypoxia w/respiratory failure, CAD, patient alert and oriented x4- with periods of confusion, abdominal heria History of Any Multi-Drug Resistant Organisms: None Reported Past Surgical History: Bowel Resection, Hernia Repair, Orthopedic Surgery Additional Past Surgical History / Comment(s): Right shoulder, Right hip, bowel resection with colostomy reversal. Past Anesthesia/Blood Transfusion Reactions: No Reported Reaction Past Psychological History: No Psychological Hx Reported Smoking Status: Former smoker Past Alcohol Use History: None Reported Past Drug Use History: None Reported - Past Family History Father History Unknown: Yes Mother History Unknown: Yes Medications and Allergies Home Medications Medication Instructions Recorded Confirmed Type Acetaminophen Tab [Tylenol] 650 mg PO Q6H PRN 01/01/21 01/01/21 History Amoxic-Pot Clav 875-125Mg 1 tab PO BID 01/01/21 01/01/21 History [Augmentin 875-125] Aspirin EC [Ecotrin Low Dose] 81 mg PO DAILY 01/01/21 01/01/21 History Furosemide [Lasix] 20 mg PO BID@0900,1700 01/01/21 01/01/21 History Gabapentin [Neurontin] 100 mg PO BID 01/01/21 01/01/21 History Magnesium Hydroxide [Milk of 2,400 mg PO DAILY PRN 01/01/21 01/01/21 History Magnesia] Metoprolol Tartrate [Lopressor] 37.5 mg PO BID@0900,1700 01/01/21 01/01/21 History Multivitamins, Thera [Multivitamin 1 tab PO DAILY 01/01/21 01/01/21 History (formulary)] Pravastatin Sodium [Pravachol] 10 mg PO DAILY 01/01/21 01/01/21 History amLODIPine [Norvasc] 10 mg PO DAILY 01/01/21 01/01/21 History Allergies Allergy/AdvReac Type Severity Reaction Status Date / Time No Known Allergies Allergy Verified 01/01/21 12:46 Surgical - Exam Vital Signs Temp Pulse Resp BP Pulse Ox 98.1 F 78 18 162/75 98 01/01/21 11:20 01/01/21 11:20 01/01/21 11:20 01/01/21 11:20 01/01/21 11:20 Results - Labs 01/04/21 06:36 01/04/21 06:36 Abnormal Lab Results - Last 24 Hours (Table) 01/04/21 01/04/21 Range/Units 06:36 06:36 RBC 4.04 L (4.30-5.90) m/uL Hgb 12.3 L (13.0-17.5) gm/dL Hct 37.3 L (39.0-53.0) % Calcium 8.4 L (8.7-10.3) mg/dL Microbiology - Last 24 Hours (Table) 01/01/21 11:50 Blood Culture - Preliminary Blood No Growth after 72 hours 01/01/21 16:30 Gram Stain - Preliminary Foot - Right Wound Culture - Preliminary Pseudomonas aeruginosa Non Hemolytic Strep Diabetes panel 01/04/21 Range/Units 06:36 Sodium 141 (135-145) mmol/L Potassium 4.3 (3.5-5.5) mmol/L Chloride 107 (96-109) mmol/L Carbon Dioxide 29.4 (21.6-31.8) mmol/L BUN 18.0 (9.0-27.0) mg/dL Creatinine 1.0 (0.6-1.5) mg/dL Glucose 105 (70-110) mg/dL Calcium 8.4 L (8.7-10.3) mg/dL Calcium panel 01/04/21 Range/Units 06:36 Calcium 8.4 L (8.7-10.3) mg/dL Pituitary panel 01/04/21 Range/Units 06:36 Sodium 141 (135-145) mmol/L Potassium 4.3 (3.5-5.5) mmol/L Chloride 107 (96-109) mmol/L Carbon Dioxide 29.4 (21.6-31.8) mmol/L BUN 18.0 (9.0-27.0) mg/dL Creatinine 1.0 (0.6-1.5) mg/dL Glucose 105 (70-110) mg/dL Calcium 8.4 L (8.7-10.3) mg/dL Adrenal panel 01/04/21 Range/Units 06:36 Sodium 141 (135-145) mmol/L Potassium 4.3 (3.5-5.5) mmol/L Chloride 107 (96-109) mmol/L Carbon Dioxide 29.4 (21.6-31.8) mmol/L BUN 18.0 (9.0-27.0) mg/dL Creatinine 1.0 (0.6-1.5) mg/dL Glucose 105 (70-110) mg/dL Calcium 8.4 L (8.7-10.3) mg/dL
[2021-01-04] MEDS: SODIUM HYPOCHLORITE 0.25% 480 ML BOT MISCELLANE SCH (19:45)
--- NOTE | 2021-01-04 22:28 | PN ---
PROGRESS NOTE DATE OF SERVICE: 01/04/2021 REASON FOR FOLLOWUP: Right foot wound and cellulitis. INTERVAL HISTORY: The patient is currently afebrile. The patient mentioned his foot is getting better. Pain has decreased. No further drainage. No chest pain, shortness of breath or cough. No abdominal pain or diarrhea. PHYSICAL EXAMINATION: Blood pressure 144/66, pulse of 65, temperature 98.8. He is 95% on room air. General description is an elderly male lying in bed in no distress. RESPIRATORY SYSTEM: Unlabored breathing. Clear to auscultation anteriorly. HEART: S1, S2. Regular rate and rhythm. ABDOMEN: Soft. No tenderness. Right foot did have dry scaly changes. Redness has improved. No drainage. LABS: Hemoglobin is 12.8, white count 6.0, BUN of 18, creatinine 1.0. Local culture with pseudomonas and strep. DIAGNOSTIC IMPRESSION AND PLAN: Patient with right foot wound and cellulitis. Culture has grown pseudomonas. The patient is covered with cefepime. Local care switched over to the Dakin solution. Consultation with Vascular Surgery to make sure no evidence of any ischemic changes. We will monitor clinical course closely. MMODL / IJN: [id number] /
[2021-01-05] MEDS: ASPIRIN 81 MG PO SCH (08:24)
[2021-01-05] MEDS: amLODIPine 10 MG TAB PO SCH (08:24)
[2021-01-05] MEDS: FUROSEMIDE 20 MG TAB PO SCH ×2 (08:24→16:44)
[2021-01-05] MEDS: GABAPENTIN 100 MG CAP PO SCH ×2 (08:24→22:08)
[2021-01-05] MEDS: MULTIVITAMINS, THERA 1 EACH TAB PO SCH (08:24)
[2021-01-05] MEDS: CEFEPIME 2 GM in SODIUM CHLORIDE 0.9% 100 ML IVPB SCH (08:25)
[2021-01-05] MEDS: METOPROLOL TARTRATE 12.5 MG TAB PO SCH ×2 (08:25→16:44)
[2021-01-05] MEDS: HEPARIN SODIUM,PORCINE/PF 5,000 UNIT/0.5 ML SYRINGE SQ SCH ×3 (08:25→22:08)
[2021-01-05] MEDS: PRAVASTATIN SODIUM 20 MG TAB PO SCH (08:26)
[2021-01-05] MEDS: NYSTATIN 100,000UNIT/GM CREAM 30 GM TUBE TOPICAL SCH ×2 (08:27→22:10)
[2021-01-05] MEDS: TRIAMCINOLONE 0.1% CREAM 80 GM TUBE TOPICAL SCH ×2 (08:28→22:10)
[2021-01-05] MEDS: SODIUM HYPOCHLORITE 0.25% 480 ML BOT MISCELLANE SCH ×2 (11:02→22:09)
--- NOTE | 2021-01-05 14:53 | PN ---
PROGRESS NOTE DATE OF SERVICE: 01/05/2021 REASON FOR FOLLOWUP: Right foot wound and cellulitis. INTERVAL HISTORY: The patient is currently afebrile. The patient is breathing comfortably. Did mention slight improvement in the right foot. No chest pain, shortness of breath or cough. No abdominal pain or diarrhea. PHYSICAL EXAMINATION: Blood pressure 154/69, pulse of 62, temperature 98. He is 98% on room air. General description is an elderly male lying in bed in no distress. RESPIRATORY SYSTEM: Unlabored breathing, clear to auscultation anteriorly. HEART: S1, S2. Regular rate and rhythm. ABDOMEN: Soft, no tenderness. The right foot possible wound is currently drying out. Redness has resolved. No drainage. LABS: Hemoglobin is 12.3, white count 6.0. BUN of 18, creatinine 1.0. Local culture with Pseudomonas and Enterococcus faecalis. DIAGNOSTIC IMPRESSION AND PLAN: Patient with right foot wound with secondary cellulitis. Culture with multiple pathogen. Antibiotic will be switched over to Zosyn to cover for all the pathogens. Local care to continue with Dakin solution. Finish therapy with oral antibiotic. We will monitor his clinical course closely. MMODL / IJN: [id number] /
--- NOTE | 2021-01-05 15:48 | PN ---
PROGRESS NOTE DATE OF SERVICE: 01/04/2021 This is an 85-year-old white male with gangrene of the feet, severe cellulitis of the feet. Remains on IV antibiotics. Wound care with Dakin's sodium hypochlorite application to the legs. Remains on heparin, cefepime, antibiotics. Waiting for Dr. Mcintosh's recommendations. CARDIOVASCULAR: S1, S2. LUNGS: Clear. GI: Soft. HEMATOLOGY: Negative Homans. Extremities show black eschar with red scaly exudate on the entire foot on the left. It has grown Pseudomonas. He is covered cefepime and Dakin's solution. Vascular Surgery to check for ischemia. MMODL / IJN: [id number] /
[2021-01-05] MEDS: PIPERACILLIN-TAZOBACTAM 3.375 GM in SODIUM CHLORIDE 0.9% 100 ML IVPB SCH (16:47)
--- NOTE | 2021-01-05 18:49 | PN ---
PROGRESS NOTE An 85-year-old white male who remains on cefepime for a drug-resistant feet infection. He will need a PICC line for outpatient IV antibiotics I am sure. Waiting for Vascular recommendations. Cardiovascular S1-S2. Lungs clear. GI soft. Hematology negative Homans. ASSESSMENT: Drug-resistant cellulitis of the legs secondary to cellulitis. Zosyn, Dakin solution, possibly switch to oral antibiotics at discharge. Possibly send back to rehab at the half-way in the next day or two. MMODL / IJN: [id number] /
[2021-01-06] MEDS: PIPERACILLIN-TAZOBACTAM 3.375 GM in SODIUM CHLORIDE 0.9% 100 ML IVPB SCH ×3 (00:13→16:13)
[2021-01-06] MEDS: HEPARIN SODIUM,PORCINE/PF 5,000 UNIT/0.5 ML SYRINGE SQ SCH ×2 (08:25→16:45)
[2021-01-06] MEDS: METOPROLOL TARTRATE 12.5 MG TAB PO SCH ×2 (08:26→16:44)
[2021-01-06] MEDS: ASPIRIN 81 MG PO SCH (08:26)
[2021-01-06] MEDS: GABAPENTIN 100 MG CAP PO SCH ×2 (08:26→20:48)
[2021-01-06] MEDS: FUROSEMIDE 20 MG TAB PO SCH ×2 (08:26→16:45)
[2021-01-06] MEDS: amLODIPine 10 MG TAB PO SCH (08:26)
[2021-01-06] MEDS: PRAVASTATIN SODIUM 20 MG TAB PO SCH (08:26)
[2021-01-06] MEDS: MULTIVITAMINS, THERA 1 EACH TAB PO SCH (08:26)
[2021-01-06] MEDS: NYSTATIN 100,000UNIT/GM CREAM 30 GM TUBE TOPICAL SCH ×2 (08:27→20:50)
[2021-01-06] MEDS: TRIAMCINOLONE 0.1% CREAM 80 GM TUBE TOPICAL SCH ×2 (08:28→20:50)
--- NOTE | 2021-01-06 13:36 | PN ---
PROGRESS NOTE DATE OF SERVICE: 01/06/2021 REASON FOR FOLLOWUP: Right foot cellulitis. INTERVAL HISTORY: The patient is currently afebrile. Patient is breathing comfortably. Did mention right foot swelling and pain has slightly decreased. No chest pain, shortness of breath or cough. No abdominal pain or diarrhea. PHYSICAL EXAMINATION: Blood pressure is 147/58, pulse of 56, temperature 97.9. He is 96% on room air. General description is an elderly male up in the chair in no distress. RESPIRATORY SYSTEM: Unlabored breathing, clear to auscultation anteriorly. HEART: S1, S2. Regular rate and rhythm. ABDOMEN: Soft, no tenderness. Right foot is currently drying out, no drainage. LABS: Hemoglobin is 12.3, white count 6.0. BUN of 18, creatinine 1.0. DIAGNOSTIC IMPRESSION AND PLAN: Patient with right foot wound with secondary cellulitis. Culture positive for Pseudomonas, Enterococcus, anaerobes. Plan is to finish therapy with oral Cipro and Augmentin for a week. Local care with Dakin solution. Advised to follow up in the wound care center with me next week. Continue supportive care. MMODL / IJN: [id number] / SHARON
[2021-01-06] MEDS: AMOXIC-POT CLAV 875-125MG 1 EACH TAB PO SCH (20:47)
[2021-01-06] MEDS: CIPROFLOXACIN HCL 500 MG TAB PO SCH (20:48)
[2021-01-06] MEDS: SODIUM HYPOCHLORITE 0.25% 480 ML BOT MISCELLANE SCH (20:49)
--- NOTE | 2021-01-06 22:33 | DS ---
DISCHARGE SUMMARY MEDICATIONS: 1. Nystatin cream topically b.i.d. 2. Augmentin 875 one b.i.d. for 10 days. 3. Cipro 500 one b.i.d. for 10 days. 4. Kenalog cream topical application b.i.d. 5. Motrin 400 q.6 p.r.n. 6. Tramadol 50 q.6 p.r.n. 7. Milk of magnesia 2400 mg daily. 8. Lopressor 37.5 mg b.i.d. 9. Lasix 20 mg orally b.i.d. 10.Pravachol 10 mg daily. 11.Norvasc 10 mg daily. 12.Multivitamin daily. 13.Aspirin 81 mg daily. 14.Tylenol 650 q.6 p.r.n. for pain. 15.Neurontin 100 b.i.d. CONDITION: Stable. PROGNOSIS: Guarded. Ambulate as tolerated. Diet regular. DIAGNOSES: 1. Cellulitis of the right foot, failed outpatient treatment. 2. 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 3. History of hypertension. 4. Dyslipidemia. 5. Severe pain. Patient came to the hospital after failing outpatient treatment in the longterm for wound care. He had some wound debridement by Infectious Disease, started on IV Unasyn in the hospital. Cultures came back showing Pseudomonas, Enterococcus. Switched to Cipro and Augmentin. To follow up in the next 10 days for treatment. He has Dakin's solutions going to his lower legs daily. He will follow up with Dr. Raji Hernández in the longterm and follow up with Dr. Mcintosh in the wound clinic. MMODL / IJN: [id number] /
[2021-01-07] MEDS: HEPARIN SODIUM,PORCINE/PF 5,000 UNIT/0.5 ML SYRINGE SQ SCH ×2 (00:22→08:28)
[2021-01-07 05:25] VITALS: RESP 18
[2021-01-07] MEDS: MULTIVITAMINS, THERA 1 EACH TAB PO SCH (08:28)
[2021-01-07] MEDS: FUROSEMIDE 20 MG TAB PO SCH (08:28)
[2021-01-07] MEDS: GABAPENTIN 100 MG CAP PO SCH (08:28)
[2021-01-07] MEDS: amLODIPine 10 MG TAB PO SCH (08:28)
[2021-01-07] MEDS: ASPIRIN 81 MG PO SCH (08:28)
[2021-01-07] MEDS: CIPROFLOXACIN HCL 500 MG TAB PO SCH (08:29)
[2021-01-07] MEDS: AMOXIC-POT CLAV 875-125MG 1 EACH TAB PO SCH (08:29)
[2021-01-07] MEDS: METOPROLOL TARTRATE 12.5 MG TAB PO SCH (08:29)
[2021-01-07] MEDS: PRAVASTATIN SODIUM 20 MG TAB PO SCH (08:30)
[2021-01-07] MEDS: NYSTATIN 100,000UNIT/GM CREAM 30 GM TUBE TOPICAL SCH (08:31)
[2021-01-07] MEDS: TRIAMCINOLONE 0.1% CREAM 80 GM TUBE TOPICAL SCH (08:34)
[2021-01-07 12:53] VITALS: BP 145/64; PULSE 56; TEMP 97.9
--- NOTE | 2021-01-07 15:37 | P.PN ---
Progress Note - Text Progress Note Date: 01/07/21 REASON FOR FOLLOWUP: Right foot cellulitis. INTERVAL HISTORY: The patient remains to be afebrile. Patient is breathing comfortably. Pt right foot swelling and pain has decreased. No chest pain, shortness of breath or cough. No abdominal pain or diarrhea. PHYSICAL EXAMINATION: Blood pressure is 140/50, pulse of 59, temperature 97.9. He is 96% on room air. General description is an elderly male up in the chair in no distress. RESPIRATORY SYSTEM: Unlabored breathing, clear to auscultation anteriorly. HEART: S1, S2. Regular rate and rhythm. ABDOMEN: Soft, no tenderness. Right foot is currently drying out, no drainage. LABS: no new labs DIAGNOSTIC IMPRESSION AND PLAN: Patient with right foot wound with secondary cellulitis. Culture positive for Pseudomonas, Enterococcus, anaerobes. Plan is to finish therapy with oral Cipro and Augmentin for a week. Local care with Dakin solution. pt is to follow up in the wound care center with me next week for continued local wound care.
== END 2021-01-07 14:50 | DRG 603 ==
LOC: EC 11:17 → 5NMEDONC 13:30
PROVIDERS: ADMIT Family Medicine; ATTEND Family Medicine
DX: L03.115 Cellulitis of right lower limb (principal); I70.261 Atherosclerosis of native arteries of extremities with gangrene, right leg; M85.80 Other specified disorders of bone density and structure, unspecified site; L97.519 Non-pressure chronic ulcer of other part of right foot with unspecified severity; I10 Essential (primary) hypertension; Z79.82 Long term (current) use of aspirin; Z86.16 Personal history of COVID-19; Z87.891 Personal history of nicotine dependence; E78.5 Hyperlipidemia, unspecified; H91.90 Unspecified hearing loss, unspecified ear; S92.356A Nondisplaced fracture of fifth metatarsal bone, unspecified foot, initial encounter for closed fracture; I12.9 Hypertensive chronic kidney disease with stage 1 through stage 4 chronic kidney disease, or unspecified chronic kidney disease; I25.10 Atherosclerotic heart disease of native coronary artery without angina pectoris; Z20.822 Contact with and (suspected) exposure to COVID-19; L03.116 Cellulitis of left lower limb; N18.9 Chronic kidney disease, unspecified
CPT/HCPCS: 36415; 80048; 80053; 82565; 83605; 85025; 85652; 86140; 87040; 87070; 87075; 87077; 87186; 87205; 87635; 99285

== ENCOUNTER 2021-04-13 13:27 | Inpatient (IN) | payer MEDICARE, OTHER ==
--- NOTE | 2021-04-13 14:44 | ED ---
General Adult HPI - General Chief complaint: Skin/Abscess/Foreign Body Stated complaint: Foot wound Time Seen by Provider: 04/13/21 13:34 Source: patient, RN notes reviewed, old records reviewed (Chart was reviewed.) Mode of arrival: EMS Limitations: no limitations - History of Present Illness Initial comments: Patient is a pleasant 86-year-old male transferred for cellulitis/wound infection right foot. Patient does have chronic cellulitis. Patient did have bandage over his foot for the past week or 2. Patient was seen at different facility and was started on cefepime and vancomycin. Patient was transferred for infectious disease consult. X-rays were obtained. - Related Data Home Medications Medication Instructions Recorded Confirmed Acetaminophen Tab [Tylenol] 650 mg PO Q6H PRN 01/01/21 01/01/21 Amoxic-Pot Clav 875-125Mg 1 tab PO BID 01/01/21 01/01/21 [Augmentin 875-125] Aspirin EC [Ecotrin Low Dose] 81 mg PO DAILY 01/01/21 01/01/21 Furosemide [Lasix] 20 mg PO BID@0900,1700 01/01/21 01/01/21 Gabapentin [Neurontin] 100 mg PO BID 01/01/21 01/01/21 Magnesium Hydroxide [Milk of 2,400 mg PO DAILY PRN 01/01/21 01/01/21 Magnesia] Metoprolol Tartrate [Lopressor] 37.5 mg PO BID@0900,1700 01/01/21 01/01/21 Multivitamins, Thera [Multivitamin 1 tab PO DAILY 01/01/21 01/01/21 (formulary)] Pravastatin Sodium [Pravachol] 10 mg PO DAILY 01/01/21 01/01/21 amLODIPine [Norvasc] 10 mg PO DAILY 01/01/21 01/01/21 Previous Rx's Medication Instructions Recorded Amoxic-Pot Clav 875-125Mg 1 each PO Q12HR tab 01/06/21 [Augmentin 875-125] Ciprofloxacin HCl [Cipro] 500 mg PO BID tab 01/06/21 Ibuprofen [Motrin] 400 mg PO Q6HR PRN tab 01/06/21 Nystatin 100,000Unit/gm Cream 1 applic TOPICAL BID applic 01/06/21 [Mycostatin Cream] Triamcinolone 0.1% Cream [Kenalog 1 applic TOPICAL BID applic 01/06/21 0.1% Cream] traMADol HCl [Ultram] 50 mg PO Q6H PRN tab 01/06/21 Allergies Allergy/AdvReac Type Severity Reaction Status Date / Time No Known Allergies Allergy Verified 01/01/21 12:46 Review of Systems ROS Statement: Those systems with pertinent positive or pertinent negative responses have been documented in the HPI. ROS Other: All systems not noted in ROS Statement are negative. Constitutional: Denies: fever Eyes: Denies: eye pain ENT: Denies: ear pain Respiratory: Denies: cough Cardiovascular: Denies: chest pain Endocrine: Denies: fatigue Gastrointestinal: Denies: abdominal pain Genitourinary: Denies: dysuria Musculoskeletal: Denies: back pain Skin: Reports: rash Past Medical History Past Medical History: Hearing Disorder / Deafness, Hyperlipidemia, Hypertension, Renal Disease Additional Past Medical History / Comment(s): cellulitis right leg, [place]- no aides, right tibial fracture, covid19, atherosclerosis heart disease, hypoxia w/respiratory failure, CAD, patient alert and oriented x4- with periods of confusion, abdominal heria History of Any Multi-Drug Resistant Organisms: Other MDRO Past Surgical History: Bowel Resection, Hernia Repair, Orthopedic Surgery Additional Past Surgical History / Comment(s): Right shoulder, Right hip, bowel resection with colostomy reversal. Past Anesthesia/Blood Transfusion Reactions: No Reported Reaction Past Psychological History: No Psychological Hx Reported Smoking Status: Former smoker Past Alcohol Use History: None Reported Past Drug Use History: None Reported - Past Family History Father History Unknown: Yes Mother History Unknown: Yes General Exam Limitations: no limitations General appearance: alert, in no apparent distress Head exam: Present: normocephalic Eye exam: Present: normal appearance Respiratory exam: Present: normal lung sounds bilaterally Cardiovascular Exam: Present: regular rate, normal rhythm GI/Abdominal exam: Present: soft. Absent: tenderness Extremities exam: Present: pedal edema (Trace bilateral) Neurological exam: Present: alert Psychiatric exam: Present: normal affect, normal mood Skin exam: Present: other (Bilateral lower legs with chronic cellulitic changes. Right dorsal foot to the ankle region with acute cellulitic changes with erythema and tenderness.) Course Vital Signs 04/13/21 13:29 Temperature 98.1 F Pulse Rate 69 Respiratory 18 Rate Blood Pressure 137/69 O2 Sat by Pulse 100 Oximetry Medical Decision Making - Medical Decision Making Patient is made aware of results and plan. Case was with Dr. garcia, who will admit hospital call. Disposition Clinical Impression: Cellulitis of right foot Disposition: ADMITTED IP TO THIS HOSP Condition: Stable Is patient prescribed a controlled substance at d/c from ED?: No Referrals: Nonstaff,Physician [Primary Care Provider] - 1-2 days Decision Time: 14:44
[2021-04-13] MEDS ORDERED: VANCOMYCIN IV PER PHARMACY 1 EACH MISC MISCELLANE PRN ×2 (14:45→20:34)
[2021-04-13] MEDS ORDERED: ACETAMINOPHEN TAB 325 MG TAB PO PRN (14:46)
[2021-04-13] MEDS ORDERED: NALOXONE 0.4 MG/ML 1 ML VIAL IV PRN (14:46)
[2021-04-13] MEDS: SODIUM CHLORIDE 0.9% 1,000 ML IV SCH (15:41)
[2021-04-13 20:12] LABS: Glucose,Whole Blood 133 mg/dL (75-99)
[2021-04-13] MEDS ORDERED: hydrALAZINE HCL 20 MG/ML 1 ML VIAL IVP PRN (20:37)
[2021-04-13] MEDS: FAMOTIDINE 20 MG/2 ML VIAL IV SCH (21:25)
[2021-04-13] MEDS: METOPROLOL TARTRATE 50 MG TAB PO SCH (21:25)
[2021-04-13] MEDS: PRAVASTATIN SODIUM 20 MG TAB PO SCH (21:26)
[2021-04-13] MEDS: CEFEPIME 1 GM in SODIUM CHLORIDE 0.9% 50 ML IVPB SCH (21:26)
[2021-04-13] MEDS ORDERED: NYSTAT-TRIAMCIN 100,000-0.1 UNIT/GM-% CREAM 30 GM TUBE TOPICAL SCH (22:00)
--- NOTE | 2021-04-13 22:13 | P.HPIM ---
History of Present Illness This is a pleasant 86 years old male with past medical history of hypertension, hyperlipidemia, COVID-19 infection, coronary artery disease. He was in this hospital from 01/01-01/04 2021 for a right foot cellulitis. Patient was brought by his son to [facility] before he was transferred to [facility] because of painful and infection of his right leg and toe which was been going on for several weeks . 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 His right foot is swollen, red and tender He denies chest pain, no dyspnea, no abdominal pain or nausea vomiting. No headache or weakness or numbness Patient lives in apartment owned by his son. Smoking, alcohol or illicit drugs hemodynamically is a stable but blood pressure is elevated on admission 180/75 On reviewing the records from [facility], labs showing glucose elevated at 121, creatinine slightly elevated at 1.16. Sodium 137, potassium 4.1, bicarb is 28, calcium is 8.8 WBC is normal at 8.9, hemoglobin slightly low at 11.7, platelet count normal at 207. From the original hospital at [place] he was started on cefepime and IV vancomycin Review of Systems CONSTITUTIONAL: No fever, no malaise, no fatigue. HEENT: No recent visual problems or hearing problems. Denied any sore throat. CARDIOVASCULAR: No orthopnea, PND, no palpitations, no syncope. PULMONARY: No shortness of breath, no cough, no hemoptysis. GASTROINTESTINAL: No diarrhea, no nausea, no vomiting, no abdominal pain. Normoactive bowel sounds. NEUROLOGICAL: No headaches, no weakness, no numbness. HEMATOLOGICAL: Denies any bleeding or petechiae. GENITOURINARY: Denies any burning micturition, frequency, or urgency. -MUSCULOSKELETAL/RHEUMATOLOGICAL: See above ENDOCRINE: Denies any polyuria or polydipsia. Past Medical History Past Medical History: Hearing Disorder / Deafness, Hyperlipidemia, Hypertension, Renal Disease Additional Past Medical History / Comment(s): cellulitis right leg, [place]- no aides, right tibial fracture, covid19, atherosclerosis heart disease, hypoxia w/respiratory failure, CAD, patient alert and oriented x4- with periods of confusion, abdominal heria History of Any Multi-Drug Resistant Organisms: Other MDRO Past Surgical History: Bowel Resection, Hernia Repair, Orthopedic Surgery Additional Past Surgical History / Comment(s): Right shoulder, Right hip, bowel resection with colostomy reversal. Past Anesthesia/Blood Transfusion Reactions: No Reported Reaction Past Psychological History: No Psychological Hx Reported Smoking Status: Former smoker Past Alcohol Use History: None Reported Past Drug Use History: None Reported - Past Family History Father History Unknown: Yes Mother History Unknown: Yes Medications and Allergies Home Medications Medication Instructions Recorded Confirmed Type Aspirin EC [Ecotrin Low Dose] 81 mg PO DAILY 01/01/21 04/13/21 History Furosemide [Lasix] 20 mg PO BID@0600,1200 01/01/21 04/13/21 History Multivitamins, Thera [Multivitamin 1 tab PO DAILY 01/01/21 04/13/21 History (formulary)] amLODIPine [Norvasc] 10 mg PO DAILY 01/01/21 04/13/21 History Ammonium Lactate Lotion 1 applic TOPICAL BID 04/13/21 04/13/21 History [Lac-Hydrin 12% Lotion] Metoprolol Tartrate [Lopressor] 50 mg PO BID 04/13/21 04/13/21 History Pravastatin Sodium [Pravachol] 10 mg PO HS 04/13/21 04/13/21 History Allergies Allergy/AdvReac Type Severity Reaction Status Date / Time No Known Allergies Allergy Verified 04/13/21 17:11 Physical Exam Vitals: Vital Signs Temp Pulse Pulse Resp BP BP Pulse Ox 04/13/21 18:45 98.1 F 79 18 181/75 96 04/13/21 15:44 76 18 165/79 98 04/13/21 13:29 98.1 F 69 18 137/69 100 Intake and Output 04/13/21 04/13/21 04/13/21 06:59 14:59 22:59 Other: Weight 90.718 kg 90.718 kg GENERAL: The patient is alert and oriented x3, not in any acute distress. Well developed, well nourished. HEENT: Pupils are round and equally reacting to light. EOMI. No scleral icterus. No conjunctival pallor. Normocephalic, atraumatic. No pharyngeal erythema. No thyromegaly. CARDIOVASCULAR: S1 and S2 present. No murmurs, rubs, or gallops. PULMONARY: Chest is clear to auscultation, no wheezing or crackles. ABDOMEN: Soft, nontender, nondistended, normoactive bowel sounds. No palpable organomegaly. MUSCULOSKELETAL: No joint swelling or deformity. -EXTREMITIES: No cyanosis, clubbing, or pedal edema. Right foot especially around the ankle is red, swollen with some area of black discoloration and others of greenish discoloration. Very tender to movement. More warm to touch. Less redness, swelling and tenderness in the distal right leg NEUROLOGICAL: Gross neurological examination did not reveal any focal deficits. SKIN: No rashes. No petechiae Results Labs: Abnormal Lab Results - Last 24 Hours (Table) 04/13/21 Range/Units 20:11 POC Glucose (mg/dL) 133 H (75-99) mg/dL Thrombosis Risk Factor Assmnt - Choose All That Apply Each Factor Represents 1 point: Obesity (BMI >25) Each Risk Factor Represents 3 Points: Age 75 years or older Thrombosis Risk Factor Assessment Total Risk Factor Score: 4 Thrombosis Risk Factor Assessment Level: Moderate Risk Assessment and Plan Assessment: Acute Right foot cellulitis . Rule out osteomyelitis History of Nondisplaced fracture of the base of the fifth metatarsal. Recent history of COVID-19 infection Hearing disorder/deafness Possible chronic kidney disease stage III Hypertension Hyperlipidemia Previous history of smoking Plan: this is a pleasant 86 years old male who presents with a right foot cellulitis continue with antibiotics per ID team. Currently on cefepime and IV vancomycin per pharmacy to dose Vascular surgery consult Pain management Follow-up culture results check ESR and C-reactive protein Check Doppler of the bilateral lower extremities to rule out DVT Labs and medication were reviewed.. Continue same treatment. Continue with symptomatic treatment. Resume home medication. Monitor lytes and vitals. DVT and GI prophylaxis. Further recommendations depends on the clinical course of the patient DVT prophylaxis: Subcutaneous heparin GI Prophylaxis: Pepcid PT/OT: Pending Prognosis is guarded
[2021-04-13] MEDS: HEPARIN SODIUM,PORCINE/PF 5,000 UNIT/0.5 ML SYRINGE SQ SCH (23:14)
[2021-04-13] MEDS: NYSTATIN 100,000UNIT/GM CREAM 30 GM TUBE TOPICAL SCH (23:14)
[2021-04-13] MEDS: TRIAMCINOLONE 0.1% CREAM 80 GM TUBE TOPICAL SCH (23:14)
--- NOTE | 2021-04-14 00:30 | US ---
EXAMINATION TYPE: US venous doppler duplex LE DATE OF EXAM: 04/14/2021 12:02 AM COMPARISON: US CLINICAL HISTORY: Rule out DVT. Rule out DVT. Pain. Patient poor historian. SIDE PERFORMED: Bilateral TECHNIQUE: The lower extremity deep venous system is examined utilizing real time linear array sonog john with graded compression, doppler sonography and color-flow sonography. VESSELS IMAGED: Common Femoral Vein Deep Femoral Vein Greater Saphenous Vein * Femoral Vein Popliteal Vein Small Saphenous Vein * Proximal Calf Veins (* superficial vessels) Right Leg: CFV appears to compress incompletely. All veins imaged show color flow. Possible chronic internal echoes along the wall of the CFV. Multiple hypoechoic areas with hyperechoic centers seen within the right groin, largest area measures 1.8 x 2.1 x 1.3 cm. Left Leg: CFV appears to compress incompletely. Possible chronic internal echoes along the wall of t he CFV. -There appear to be internal echoes within the distal popliteal vein. This segment of popliteal vein appears to compress incompletely. Color defect is seen. 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 There is also involvement of the left popliteal vein. No evidence of acute deep vein thrombosis.
[2021-04-14 06:22] LABS: African American GFR (CKD) 73 (>60 ml/min/1.73 sqM); Anion Gap 4 mmol/L; Blood Urea Nitrogen 24 mg/dL (9-20); Calcium 8.6 mg/dL (8.4-10.2); Carbon Dioxide 25 mmol/L (22-30); Chloride 106 mmol/L (98-107); Glucose 105 mg/dL (74-99); Non-African American GFR(CKD) 63 (>60 ml/min/1.73 sqM); Potassium 4.9 mmol/L (3.5-5.1); Sodium 135 mmol/L (137-145)
[2021-04-14 06:48] LABS: ALT 7 U/L (4-49); AST 17 U/L (17-59); Albumin 2.9 g/dL (3.5-5.0); Albumin/Globulin Ratio 0.9; Alkaline Phosphatase 69 U/L (38-126); Globulin 3.1 g/dL; Magnesium 2.1 mg/dL (1.6-2.3); Total Bilirubin 0.3 mg/dL (0.2-1.3)
--- NOTE | 2021-04-14 07:21 | CONS ---
CONSULTATION DATE OF SERVICE: 04/13/2021 REASON FOR CONSULTATION: Bilateral lower extremity cellulitis. HISTORY OF PRESENT ILLNESS: The patient is an 86-year-old male who was recently admitted to this facility and has been treated with bilateral lower extremity venostasis dermatitis and secondary cellulitis. The patient did have overall improvement with subsequent discharge home. The patient is now presenting back to the hospital for evaluation of increasing swelling and redness of the right lower extremity more than left leg that has been getting worse for the last 2 weeks. The patient was evaluated at and subsequent has been transferred to [facility]. On cefepime and vancomycin. The patient has been complaining of pain to the leg. This patient describes intensity about 3-4/10 and mostly sharp in nature and did have mild drainage. No foul smelling. Did have some chills but no high-grade fever. On presentation hospital the patient was afebrile. No significant workup has been done. The patient was continued on cefepime and vancomycin and was admitted to the hospital. Infectious Disease was consulted for further management of antibiotic therapy. REVIEW OF SYSTEMS: Positive points have been mentioned in HPI. Rest of systems are negative. PAST MEDICAL HISTORY: Lower extremity venostasis dermatitis and cellulitis. History of hypertension, hyperlipidemia, renal insufficiency. PAST SURGICAL HISTORY: Bowel resection, hernia repair, right shoulder and right hip surgery. SOCIAL HISTORY: Remote history of smoking. No drinking or drug use. FAMILY HISTORY: No pertinent findings noticed. ALLERGIES: No known drug allergies. MEDICATIONS: The patient is currently on Tylenol, Norvasc, aspirin, Rocephin 1 g q.12, folic acid, Pepcid, hydralazine, Lopressor, Theragran, Narcan, Pravachol, vancomycin. PHYSICAL EXAMINATION: VITAL SIGNS: Blood pressure 181/75 with a pulse of 79, temperature 98.1, he is 96% on room air. GENERAL DESCRIPTION: Patient is an elderly male lying in bed in no distress. No tachypnea or accessory muscles of respiration use. HEENT: Examination shows no pallor or scleral icterus. Oral mucous membrane is dry. NECK: Trachea central, no thyromegaly. LUNGS: Unlabored breathing, clear to auscultation anteriorly. HEART: S1-S2, regular rate and rhythm. ABDOMEN: Soft, no tenderness. No guarding or rigidity. EXTREMITIES: Lower extremity swelling and redness, more to the right leg than to the left leg. NEUROLOGICAL: Patient is awake, alert, oriented times three. Mood and affect normal. LABS: No new labs at this facility. DIAGNOSTIC IMPRESSION AND PLAN: Patient admitted to the hospital with increasing swelling and redness to the lower extremity and this patient did have history of venostasis dermatitis with secondary cellulitis, right greater than left. Presented to the hospital because of cellulitis likely secondary to gram-positive not entirely excluded with recent local culture positive for Pseudomonas and Enterococcus. PLAN: 1. Patient to continue with cefepime 1 g q.12h while watching kidney function. 2. Continue vancomycin. 3. Local wound care with Mycolog cream. 4. Kirill the area of the redness. 5. We will follow on his clinical condition and culture to further adjust medication if needed. Thank you for this consultation. Will follow this patient along with you. MMAMANDAL / IJN: [id number] /
[2021-04-14] MEDS: HEPARIN SODIUM,PORCINE/PF 5,000 UNIT/0.5 ML SYRINGE SQ SCH ×2 (07:37→15:32)
[2021-04-14] MEDS ORDERED: VANCOMYCIN 1,500 MG in SODIUM CHLORIDE 0.9% 250 ML IVPB SCH (09:00)
[2021-04-14] MEDS: FAMOTIDINE 20 MG/2 ML VIAL IV SCH (09:35)
[2021-04-14] MEDS: CEFEPIME 1 GM in SODIUM CHLORIDE 0.9% 50 ML IVPB SCH ×2 (09:35→21:34)
[2021-04-14 09:38] LABS: C Reactive Protein 8.7 mg/dL (<1.0)
[2021-04-14] MEDS: SODIUM CHLORIDE 0.9% 1,000 ML IV SCH ×2 (09:39→17:10)
[2021-04-14] MEDS: TRIAMCINOLONE 0.1% CREAM 80 GM TUBE TOPICAL SCH ×2 (09:57→21:35)
[2021-04-14] MEDS: NYSTATIN 100,000UNIT/GM CREAM 30 GM TUBE TOPICAL SCH ×2 (09:57→21:35)
[2021-04-14] MEDS: METOPROLOL TARTRATE 50 MG TAB PO SCH ×2 (09:57→21:34)
[2021-04-14] MEDS: MULTIVITAMINS, THERA 1 EACH TAB PO SCH (09:57)
[2021-04-14] MEDS: ASPIRIN 81 MG PO SCH (09:57)
[2021-04-14] MEDS: amLODIPine 10 MG TAB PO SCH (09:58)
[2021-04-14 10:22] LABS: Basophils # (A) 0.05 X 10*3/uL (0.00-0.10); Basophils % (A) 0.6 %; Eosinophils # (A) 0.59 X 10*3/uL (0.04-0.35); Eosinophils % (A) 7.6 %; HCT 34.1 % (39.6-50.0); HGB 11.5 g/dL (13.0-17.0); Lymphocytes # (A) 1.57 X 10*3/uL (0.90-5.00); Lymphocytes % (A) 20.3 %; MCH 31.8 pg (27.0-32.0); MCHC 33.7 g/dL (32.0-37.0); MCV 94.2 fL (80.0-97.0); Mean Platelet Volume 10.7 fL (9.5-12.2); Monocytes % (A) 10.3 %; Neutrophils # (A) 4.71 X 10*3/uL (1.80-7.70); Neutrophils % (A) 60.8 %; Platelet Count 198 X 10*3/uL (140-440); RBC 3.62 X 10*6/uL (4.40-5.60); RDW 13.9 % (11.5-14.5); WBC 7.75 X 10*3/uL (4.50-10.00)
[2021-04-14 12:50] LABS: Erythrocyte Sedimentation Rate 65 mm/Hr (0-20)
--- NOTE | 2021-04-14 14:31 | P.GSCN ---
History of Present Illness Consult date: 04/14/21 History of present illness: Mr. Little is an 86-year-old male who came into the hospital with increasing redness of his right lower extremity. He has a history of swelling in his lower extremities and has been trying to utilize compression but given his age and relative debilities but unable to perform his own dressing changes. He has not been seen at wound care formally that he is aware of. He denies any blood clots that he is aware of. He states overall his leg is feeling a little better and is less swollen than when he arrived here at the hospital.. Review of Systems 14 point review of systems performed. Pertinent positives and negatives per the HPI Past Medical History Past Medical History: Hearing Disorder / Deafness, Hyperlipidemia, Hypertension, Renal Disease Additional Past Medical History / Comment(s): cellulitis right leg, [place]- no aides, right tibial fracture, covid19, atherosclerosis heart disease, hypoxia w/respiratory failure, CAD, patient alert and oriented x4- with periods of confusion, abdominal heria History of Any Multi-Drug Resistant Organisms: Other MDRO Past Surgical History: Bowel Resection, Hernia Repair, Orthopedic Surgery Additional Past Surgical History / Comment(s): Right shoulder, Right hip, bowel resection with colostomy reversal. Past Anesthesia/Blood Transfusion Reactions: No Reported Reaction Past Psychological History: No Psychological Hx Reported Smoking Status: Former smoker Past Alcohol Use History: None Reported Past Drug Use History: None Reported - Past Family History Father History Unknown: Yes Mother History Unknown: Yes Medications and Allergies Home Medications Medication Instructions Recorded Confirmed Type Aspirin EC [Ecotrin Low Dose] 81 mg PO DAILY 01/01/21 04/13/21 History Furosemide [Lasix] 20 mg PO BID@0600,1200 01/01/21 04/13/21 History Multivitamins, Thera [Multivitamin 1 tab PO DAILY 01/01/21 04/13/21 History (formulary)] amLODIPine [Norvasc] 10 mg PO DAILY 01/01/21 04/13/21 History Ammonium Lactate Lotion 1 applic TOPICAL BID 04/13/21 04/13/21 History [Lac-Hydrin 12% Lotion] Metoprolol Tartrate [Lopressor] 50 mg PO BID 04/13/21 04/13/21 History Pravastatin Sodium [Pravachol] 10 mg PO HS 04/13/21 04/13/21 History Allergies Allergy/AdvReac Type Severity Reaction Status Date / Time No Known Allergies Allergy Verified 04/13/21 17:11 Surgical - Exam Vital Signs Temp Pulse Resp BP Pulse Ox 98.1 F 69 18 137/69 100 04/13/21 13:29 04/13/21 13:29 04/13/21 13:29 04/13/21 13:29 04/13/21 13:29 Gen. is a pleasant cooperative male in no acute distress. HEENT is normocephalic, atraumatic, extraocular motion intact. Heart appears regular. Lungs are clear bilaterally. Abdomen soft, nontender nondistended. Extremity s how no clubbing or cyanosis. He has moderate edema to the bilateral lower extremities with sloughing overlying skin. There is a area of denuded skin to the right dorsum of the foot. No proper open wound Results - Labs 04/14/21 05:42 04/14/21 05:42 Abnormal Lab Results - Last 24 Hours (Table) 04/13/21 04/14/21 04/14/21 Range/Units 20:11 05:42 05:42 RBC 3.62 L (4.40-5.60) X 10*6/uL Hgb 11.5 L (13.0-17.0) g/dL Hct 34.1 L (39.6-50.0) % Eosinophils # 0.59 H (0.04-0.35) X 10*3/uL ESR 65 H (0-20) mm/Hr Sodium 135 L (137-145) mmol/L BUN 24 H (9-20) mg/dL Glucose 105 H (74-99) mg/dL POC Glucose (mg/dL) 133 H (75-99) mg/dL C-Reactive Protein 8.7 H (<1.0) mg/dL Total Protein 6.0 L (6.3-8.2) g/dL Albumin 2.9 L (3.5-5.0) g/dL Diabetes panel 04/14/21 Range/Units 05:42 Sodium 135 L (137-145) mmol/L Potassium 4.9 (3.5-5.1) mmol/L Chloride 106 (98-107) mmol/L Carbon Dioxide 25 (22-30) mmol/L BUN 24 H (9-20) mg/dL Creatinine 1.06 (0.66-1.25) mg/dL Glucose 105 H (74-99) mg/dL Calcium 8.6 (8.4-10.2) mg/dL AST 17 (17-59) U/L ALT 7 (4-49) U/L Alkaline Phosphatase 69 (38-126) U/L Total Protein 6.0 L (6.3-8.2) g/dL Albumin 2.9 L (3.5-5.0) g/dL Calcium panel 04/14/21 Range/Units 05:42 Calcium 8.6 (8.4-10.2) mg/dL Albumin 2.9 L (3.5-5.0) g/dL Pituitary panel 04/14/21 Range/Units 05:42 Sodium 135 L (137-145) mmol/L Potassium 4.9 (3.5-5.1) mmol/L Chloride 106 (98-107) mmol/L Carbon Dioxide 25 (22-30) mmol/L BUN 24 H (9-20) mg/dL Creatinine 1.06 (0.66-1.25) mg/dL Glucose 105 H (74-99) mg/dL Calcium 8.6 (8.4-10.2) mg/dL Adrenal panel 04/14/21 Range/Units 05:42 Sodium 135 L (137-145) mmol/L Potassium 4.9 (3.5-5.1) mmol/L Chloride 106 (98-107) mmol/L Carbon Dioxide 25 (22-30) mmol/L BUN 24 H (9-20) mg/dL Creatinine 1.06 (0.66-1.25) mg/dL Glucose 105 H (74-99) mg/dL Calcium 8.6 (8.4-10.2) mg/dL Total Bilirubin 0.3 (0.2-1.3) mg/dL AST 17 (17-59) U/L ALT 7 (4-49) U/L Alkaline Phosphatase 69 (38-126) U/L Total Protein 6.0 L (6.3-8.2) g/dL Albumin 2.9 L (3.5-5.0) g/dL Assessment and Plan Assessment: Bilateral lower extremity edema Right lower extremity wound Likely chronic venous insufficiency Plan: Similarly the patient benefit from elevation and compression wraps. Consult wound care for further evaluation. I do not believe he has significant arterial insufficiency causing his wounds. If he has issues with nonhealing then may consider full vascular workup. At this time treat venous insufficiency and venous stasis.
--- NOTE | 2021-04-14 20:28 | P.PN ---
Subjective This is a pleasant 86 years old male with past medical history of hypertension, hyperlipidemia, COVID-19 infection, coronary artery disease. He was in this hospital from 01/01-01/04 2021 for a right foot cellulitis. Patient was brought by his son to [facility] before he was transferred to [facility] because of painful and infection of his right leg and toe which was been going on for several weeks . 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 His right foot is swollen, red and tender He denies chest pain, no dyspnea, no abdominal pain or nausea vomiting. No headache or weakness or numbness Patient lives in apartment owned by his son. Smoking, alcohol or illicit drugs hemodynamically is a stable but blood pressure is elevated on admission 180/75 On reviewing the records from [facility], labs showing glucose elevated at 121, creatinine slightly elevated at 1.16. Sodium 137, potassium 4.1, bicarb is 28, calcium is 8.8 WBC is normal at 8.9, hemoglobin slightly low at 11.7, platelet count normal at 207. From the original hospital at [place] he was started on cefepime and IV vancomycin 04/14/2021 Patient right foot cellulitis is significantly better today after he was started on cefepime and IV vancomycin pharmacy to dose. Vital signs stable, labs are unremarkable. 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 Adams no evidence for ischemia of the limbs however need to address chronic venous stasis, because of that we going to consult hematology team. ESR and C-reactive protein are elevated I team on the case, continue with current antibiotics and follow up clinically Objective - Vital Signs Vital signs: Vital Signs Temp 97.8 F 04/14/21 14:00 Pulse 65 04/14/21 14:00 Resp 18 04/14/21 14:00 BP 132/49 04/14/21 14:00 Pulse Ox 96 04/14/21 14:00 Intake & Output 04/13/21 04/14/21 04/14/21 18:59 06:59 18:59 Intake Total 950 Output Total 500 Balance 450 Weight 90.718 kg Intake: Intake, IV Titration 950 Amount Cefepime 1 gm In Sodium 50 Chloride 0.9% 50 ml @ 12. 5 mls/hr IVPB Q12HR [facility] Rx#:[id number] Sodium Chloride 0.9% 1, 900 000 ml @ 75 mls/hr IV . [id number] [facility] Rx#:[id number] Output: Urine 500 Other: # Bowel Movements 1 - Labs CBC & Chem 7: 04/14/21 05:42 04/14/21 05:42 Labs: Abnormal Lab Results - Last 24 Hours (Table) 04/13/21 04/14/21 04/14/21 Range/Units 20:11 05:42 05:42 RBC 3.62 L (4.40-5.60) X 10*6/uL Hgb 11.5 L (13.0-17.0) g/dL Hct 34.1 L (39.6-50.0) % Eosinophils # 0.59 H (0.04-0.35) X 10*3/uL ESR 65 H (0-20) mm/Hr Sodium 135 L (137-145) mmol/L BUN 24 H (9-20) mg/dL Glucose 105 H (74-99) mg/dL POC Glucose (mg/dL) 133 H (75-99) mg/dL C-Reactive Protein 8.7 H (<1.0) mg/dL Total Protein 6.0 L (6.3-8.2) g/dL Albumin 2.9 L (3.5-5.0) g/dL Assessment and Plan Assessment: Acute Right foot cellulitis . Rule out osteomyelitis History of Nondisplaced fracture of the base of the fifth metatarsal. Recent history of COVID-19 infection Hearing disorder/deafness Possible chronic kidney disease stage III Hypertension Hyperlipidemia Previous history of smoking Plan: this is a pleasant 86 years old male who presents with a right foot cellulitis continue with antibiotics per ID team. Currently on cefepime and IV vancomycin per pharmacy to dose Vascular surgery consult Consult hematology team for chronic DVT which may contribute for recurrent cellulitis Follow-up recommendation by ID team Labs and medication were reviewed.. Continue same treatment. Continue with symptomatic treatment. Resume home medication. Monitor lytes and vitals. DVT and GI prophylaxis. Further recommendations depends on the clinical course of the patient DVT prophylaxis: Subcutaneous heparin GI Prophylaxis: Pepcid PT/OT: Pending Prognosis is guarded
[2021-04-14] MEDS: PRAVASTATIN SODIUM 20 MG TAB PO SCH (21:33)
[2021-04-14] MEDS: FAMOTIDINE 20 MG TAB PO SCH (21:34)
--- NOTE | 2021-04-14 23:42 | PN ---
PROGRESS NOTE DATE OF SERVICE: 04/14/2021. FOR FOLLOWUP: Right foot ulcer and cellulitis. INTERVAL HISTORY: Patient is afebrile. The patient is feeling slightly better. Overall pain and discomfort to the right leg degrees. The patient denies having any chest pain, shortness of breath or cough. No abdominal pain or diarrhea. PHYSICAL EXAMINATION: Blood pressure 136/67, pulse of 65, temperature 98.9. He is 96% on room air. General description is an elderly male lying in bed in no distress. Respiratory system: Unlabored breathing, clear to auscultation anteriorly. Heart S1, S2. Regular rate and rhythm. Abdomen soft, no tenderness. Right foot swelling has slightly decreased. LABS: Hemoglobin 11.4, white count 7.7, BUN of 24, creatinine 1.6. DIAGNOSTIC IMPRESSION AND PLAN: Patient with right foot and lower leg ulcers and cellulitis. Patient to continue cefepime. Local care with [facility] and keep compression dressing continue supportive care. MMODL / IJN: [id number] /
[2021-04-15] MEDS: HEPARIN SODIUM,PORCINE/PF 5,000 UNIT/0.5 ML SYRINGE SQ SCH ×4 (01:45→23:49)
[2021-04-15] MEDS: CEFEPIME 1 GM in SODIUM CHLORIDE 0.9% 50 ML IVPB SCH ×2 (07:50→22:12)
[2021-04-15] MEDS: SODIUM CHLORIDE 0.9% 1,000 ML IV SCH (07:50)
[2021-04-15] MEDS: ASPIRIN 81 MG PO SCH (07:51)
[2021-04-15] MEDS: FAMOTIDINE 20 MG TAB PO SCH ×2 (07:51→22:12)
[2021-04-15] MEDS: amLODIPine 10 MG TAB PO SCH (07:51)
[2021-04-15] MEDS: MULTIVITAMINS, THERA 1 EACH TAB PO SCH (07:51)
[2021-04-15] MEDS: METOPROLOL TARTRATE 50 MG TAB PO SCH ×2 (07:51→22:12)
[2021-04-15] MEDS: TRIAMCINOLONE 0.1% CREAM 80 GM TUBE TOPICAL SCH ×2 (07:52→22:10)
[2021-04-15] MEDS: NYSTATIN 100,000UNIT/GM CREAM 30 GM TUBE TOPICAL SCH ×2 (07:52→22:10)
--- NOTE | 2021-04-15 11:08 | P.PN ---
Subjective Progress Note Date: 04/15/21 Patient Doing well. Overall no complaints. He says his right leg feels slightly improved Objective - Vital Signs Vital signs: Vital Signs Temp 98.2 F 04/15/21 08:00 Pulse 62 04/15/21 08:00 Resp 18 04/15/21 08:00 BP 162/68 04/15/21 08:00 Pulse Ox 99 04/15/21 08:00 Intake & Output 04/14/21 04/15/21 04/15/21 18:59 06:59 18:59 Intake Total 450 Balance 450 Intake: Intake, IV Titration 450 Amount Cefepime 1 gm In Sodium 50 Chloride 0.9% 50 ml @ 12. 5 mls/hr IVPB Q12HR [facility] Rx#:[id number] Sodium Chloride 0.9% 1, 400 000 ml @ 50 mls/hr IV . Q20H [facility] Rx#:[id number] Other: Voiding Method Urinal Diaper # Voids 3 2 # Bowel Movements 1 - Exam Gen. is a pleasant cooperative male in no acute distress. HEENT is normocephalic, atraumatic, extraocular motion intact. Neck is supple. Trachea is midline. Heart appears regular. Lungs are clear bilaterally. Abdomen is soft, nontender nondistended. Extremity show no clubbing, cyanosis. Areas of scaling skin his left lower extremity. Areas of mild erythema to his right lower extremity - Labs CBC & Chem 7: 04/14/21 05:42 04/15/21 06:03 Labs: Abnormal Lab Results - Last 24 Hours (Table) 04/14/21 Range/Units 05:42 ESR 65 H (0-20) mm/Hr Microbiology - Last 24 Hours (Table) 04/14/21 05:42 Blood Culture - Preliminary Blood No Growth after 24 hours Assessment and Plan Assessment: Bilateral lower extremity edema Right lower extremity wound Likely chronic venous insufficiency Plan: At this time continue local wound care. Utilize compression wrap. At this time I plan to sign off. Please limit no further can be of further assistance. He may follow up in wound care and they will let me know if any further debridements or workup is necessary
--- NOTE | 2021-04-15 12:11 | P.CONS ---
History of Present Illness - Reason for Consult Consult date: 04/15/21 wound care - History of Present Illness This is a 86-year-old pleasant male being seen on 4 S. for venous insufficiency and venous stasis inflammation to bilateral lower extremities. Patient has no open ulcerations at this time. He does have sloughing and scaly appearance to the skin to bilateral lower extremities. He does have stating to bilateral lower extremities with 1+ edema noted. Patient has history of venous insufficiency. Patient states that he has not had any open ulcerations recently. Review Of Systems: Constitutional: No fever, no chills, no night sweats. No weight change. No weakness, fatigue or lethargy. No daytime sleepiness. Integumentary:reports wounds, no lesions. No rash or pruritus. No unusual bruising. No change in hair or nails. Physical exam: General Appearance: Alert, cooperative, no distress, appears stated age. Skin: See HPI all other Skin color, texture, tugor normal, no rashes or lesions. Neurologic: Alert oriented x3 Assessment: 1. Chronic hypertension with venous insufficiency of bilateral lower extremities with inflammation. 2. Venous insufficiency Plan: 1. Apply zinc barrier cream to bilateral lower extremities wrap with Kerlix and Nick wrap for compression. Change daily. Avoid sitting with legs dependent. Elevate legs for 30 minutes 3 times a day. Thank you for the consultation any questions please contact the wound care center. DNP note has been reviewed and discussed with Dr. Harris and the impression and plan of care has been directed as dictated. Past Medical History Past Medical History: Hearing Disorder / Deafness, Hyperlipidemia, Hypertension, Renal Disease Additional Past Medical History / Comment(s): cellulitis right leg, [place]- no aides, right tibial fracture, covid19, atherosclerosis heart disease, hypoxia w/respiratory failure, CAD, patient alert and oriented x4- with periods of confusion, abdominal heria History of Any Multi-Drug Resistant Organisms: Other MDRO Past Surgical History: Bowel Resection, Hernia Repair, Orthopedic Surgery Additional Past Surgical History / Comment(s): Right shoulder, Right hip, bowel resection with colostomy reversal. Past Anesthesia/Blood Transfusion Reactions: No Reported Reaction Past Psychological History: No Psychological Hx Reported Smoking Status: Former smoker Past Alcohol Use History: None Reported Past Drug Use History: None Reported - Past Family History Father History Unknown: Yes Mother History Unknown: Yes Medications and Allergies Home Medications Medication Instructions Recorded Confirmed Type Aspirin EC [Ecotrin Low Dose] 81 mg PO DAILY 01/01/21 04/13/21 History Furosemide [Lasix] 20 mg PO BID@0600,1200 01/01/21 04/13/21 History Multivitamins, Thera [Multivitamin 1 tab PO DAILY 01/01/21 04/13/21 History (formulary)] amLODIPine [Norvasc] 10 mg PO DAILY 01/01/21 04/13/21 History Ammonium Lactate Lotion 1 applic TOPICAL BID 04/13/21 04/13/21 History [Lac-Hydrin 12% Lotion] Metoprolol Tartrate [Lopressor] 50 mg PO BID 04/13/21 04/13/21 History Pravastatin Sodium [Pravachol] 10 mg PO HS 04/13/21 04/13/21 History Allergies Allergy/AdvReac Type Severity Reaction Status Date / Time No Known Allergies Allergy Verified 04/13/21 17:11 Physical Exam Vitals: Vital Signs Temp Pulse Pulse Resp BP Pulse Ox 04/15/21 08:00 98.2 F 62 18 162/68 99 04/15/21 02:15 98.1 F 62 17 165/77 96 04/14/21 19:50 98.9 F 65 18 166/67 96 04/14/21 14:00 97.8 F 65 18 132/49 96 Intake and Output 04/14/21 04/15/21 04/15/21 22:59 06:59 14:59 Intake Total 450 Balance 450 Intake: Intake, IV Titration 450 Amount Cefepime 1 gm In Sodium 50 Chloride 0.9% 50 ml @ 12. 5 mls/hr IVPB Q12HR [facility] Rx#:[id number] Sodium Chloride 0.9% 1, 400 000 ml @ 50 mls/hr IV . Q20H [facility] Rx#:[id number] Other: Voiding Method Urinal Diaper # Voids 3 2 # Bowel Movements 1 Results CBC & Chem 7: 04/14/21 05:42 04/15/21 06:03 Labs: Abnormal Lab Results - Last 24 Hours (Table) 04/14/21 Range/Units 05:42 ESR 65 H (0-20) mm/Hr Microbiology - Last 24 Hours (Table) 04/14/21 05:42 Blood Culture - Preliminary Blood No Growth after 24 hours Assessment and Plan (1) Chronic venous hypertension (idiopathic) with inflammation of bilateral lower extremity Current Visit: Yes Status: Acute Code(s): I87.323 - CHRONIC VENOUS HTN W INFLAMMATION OF BILATERAL LOW EXTRM SNOMED Code(s): 882492870 (2) Venous (peripheral) insufficiency Current Visit: Yes Status: Acute Code(s): I87.2 - VENOUS INSUFFICIENCY (CHRONIC) (PERIPHERAL) SNOMED Code(s): 47537678
--- NOTE | 2021-04-15 12:14 | P.PN ---
Subjective This is a pleasant 86 years old male with past medical history of hypertension, hyperlipidemia, COVID-19 infection, coronary artery disease. He was in this hospital from 01/01-01/04 2021 for a right foot cellulitis. Patient was brought by his son to [facility] before he was transferred to [facility] because of painful and infection of his right leg and toe which was been going on for several weeks . 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 His right foot is swollen, red and tender He denies chest pain, no dyspnea, no abdominal pain or nausea vomiting. No headache or weakness or numbness Patient lives in apartment owned by his son. Smoking, alcohol or illicit drugs hemodynamically is a stable but blood pressure is elevated on admission 180/75 On reviewing the records from [facility], labs showing glucose elevated at 121, creatinine slightly elevated at 1.16. Sodium 137, potassium 4.1, bicarb is 28, calcium is 8.8 WBC is normal at 8.9, hemoglobin slightly low at 11.7, platelet count normal at 207. From the original hospital at [place] he was started on cefepime and IV vancomycin 04/14/2021 Patient right foot cellulitis is significantly better today after he was started on cefepime and IV vancomycin pharmacy to dose. Vital signs stable, labs are unremarkable. 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 Adams no evidence for ischemia of the limbs however need to address chronic venous stasis, because of that we going to consult hematology team. ESR and C-reactive protein are elevated I team on the case, continue with current antibiotics and follow up clinically 04/15/2021 Right foot cellulitis is improving. His vitals is stable. Labs from today are pending. His ESR and C-reactive protein are elevated. Infectious disease team on the case His recurrent cellulitis mostly related to his venous status, Doppler showing chronic DVT. Patient is not on anticoagulation We will consult hematology team The patient is On cefepime. Discontinue IV fluids Vascular surgery signed off Objective - Vital Signs Vital signs: Vital Signs Temp 98.2 F 04/15/21 08:00 Pulse 62 04/15/21 08:00 Resp 18 04/15/21 08:00 BP 162/68 04/15/21 08:00 Pulse Ox 99 04/15/21 08:00 Intake & Output 04/14/21 04/15/21 04/15/21 18:59 06:59 18:59 Intake Total 450 Balance 450 Intake: Intake, IV Titration 450 Amount Cefepime 1 gm In Sodium 50 Chloride 0.9% 50 ml @ 12. 5 mls/hr IVPB Q12HR [facility] Rx#:[id number] Sodium Chloride 0.9% 1, 400 000 ml @ 50 mls/hr IV . Q20H [facility] Rx#:[id number] Other: Voiding Method Urinal Diaper # Voids 3 2 # Bowel Movements 1 - Exam GENERAL: The patient is alert and oriented x3, not in any acute distress. Well developed, well nourished. HEENT: Pupils are round and equally reacting to light. EOMI. No scleral icterus. No conjunctival pallor. Normocephalic, atraumatic. No pharyngeal erythema. No thyromegaly. CARDIOVASCULAR: S1 and S2 present. No murmurs, rubs, or gallops. PULMONARY: Chest is clear to auscultation, no wheezing or crackles. ABDOMEN: Soft, nontender, nondistended, normoactive bowel sounds. No palpable organomegaly. MUSCULOSKELETAL: No joint swelling or deformity. -EXTREMITIES: No cyanosis, clubbing, or pedal edema. Right foot especially around the ankle is red, swollen , improving with less tender and warmth. NEUROLOGICAL: Gross neurological examination did not reveal any focal deficits. SKIN: No rashes. No petechiae - Labs CBC & Chem 7: 04/14/21 05:42 04/15/21 06:03 Labs: Abnormal Lab Results - Last 24 Hours (Table) 04/14/21 Range/Units 05:42 ESR 65 H (0-20) mm/Hr Microbiology - Last 24 Hours (Table) 04/14/21 05:42 Blood Culture - Preliminary Blood No Growth after 24 hours Assessment and Plan Assessment: Acute Right foot cellulitis . Rule out osteomyelitis Chronic bilateral DVT History of Nondisplaced fracture of the base of the fifth metatarsal. Recent history of COVID-19 infection Hearing disorder/deafness Possible chronic kidney disease stage III Hypertension Hyperlipidemia Previous history of smoking Plan: this is a pleasant 86 years old male who presents with a right foot cellulitis continue with antibiotics per ID team. Currently on cefepime and vancomycin has discontinued Discontinue IV fluid Consult hematology team for chronic DVT which may contribute for recurrent cellulitis Follow-up recommendation by ID team Labs and medication were reviewed.. Continue same treatment. Continue with symptomatic treatment. Resume home medication. Monitor lytes and vitals. DVT and GI prophylaxis. Further recommendations depends on the clinical course of the patient DVT prophylaxis: Subcutaneous heparin GI Prophylaxis: Pepcid Physical therapy: Recommended home care
--- NOTE | 2021-04-15 17:52 | PN ---
PROGRESS NOTE DATE OF SERVICE: 04/15/2021 REASON FOR FOLLOWUP: Right foot wound and cellulitis. INTERVAL HISTORY: The patient is currently afebrile. The patient is breathing comfortably. Patient denies having any chest pain. No shortness of breath or cough. No abdominal pain or any worsening pain to the right foot. PHYSICAL EXAMINATION: Blood pressure 152/64 with a pulse of 85, temperature 98. He is 94% on room air. General description is an elderly male up in the chair in no distress. Respiratory system: Unlabored breathing, clear to auscultation anteriorly. Heart S1, S2. Regular rate and rhythm. Abdomen: Soft, no tenderness. LABS: No new labs have been obtained today. DIAGNOSTIC IMPRESSION AND PLAN: Patient with right foot with secondary cellulitis. Patient local care with Aquacel Silver dressing and Nick wrap. Continue with cefepime vancomycin. MMODL / IJN: [id number] /
[2021-04-15] MEDS: PRAVASTATIN SODIUM 20 MG TAB PO SCH (22:12)
--- NOTE | 2021-04-15 22:30 | P.CONS ---
History of Present Illness - Reason for Consult Consult date: 04/15/21 DVT Hx, BLE cellulitis Requesting physician: Manuel E Sheet - Chief Complaint cellulitis - History of Present Illness Pt is a poor historian, info taken from chart. PMH of HTN, hyperlipidemia, COVID-19 infection, coronary artery disease. Inpt December for cellulitis of the right foot. He was transferred here from [place]. Pt lives in an apartment on his sons property. Pt is eating when seen, seems to have a good appetite, he was seen walking in the hallway with his walker independently Reviewed previous doppler results in this EMR, RLE was neg for DVT 4 mo ago, bilateral dopler are now positive for chronic DVT, no acute. Review of Systems Difficult to optain. Pt RLE is painful for him, he has not other c/o Past Medical History Past Medical History: Hearing Disorder / Deafness, Hyperlipidemia, Hypertension, Renal Disease Additional Past Medical History / Comment(s): cellulitis right leg, [place]- no aides, right tibial fracture, covid19, atherosclerosis heart disease, hypoxia w/respiratory failure, CAD, patient alert and oriented x4- with periods of confusion, abdominal heria History of Any Multi-Drug Resistant Organisms: Other MDRO Past Surgical History: Bowel Resection, Hernia Repair, Orthopedic Surgery Additional Past Surgical History / Comment(s): Right shoulder, Right hip, bowel resection with colostomy reversal. Past Anesthesia/Blood Transfusion Reactions: No Reported Reaction Past Psychological History: No Psychological Hx Reported Smoking Status: Former smoker Past Alcohol Use History: None Reported Past Drug Use History: None Reported - Past Family History Father History Unknown: Yes Mother History Unknown: Yes Medications and Allergies Home Medications Medication Instructions Recorded Confirmed Type Aspirin EC [Ecotrin Low Dose] 81 mg PO DAILY 01/01/21 04/13/21 History Furosemide [Lasix] 20 mg PO BID@0600,1200 01/01/21 04/13/21 History Multivitamins, Thera [Multivitamin 1 tab PO DAILY 01/01/21 04/13/21 History (formulary)] amLODIPine [Norvasc] 10 mg PO DAILY 01/01/21 04/13/21 History Ammonium Lactate Lotion 1 applic TOPICAL BID 04/13/21 04/13/21 History [Lac-Hydrin 12% Lotion] Metoprolol Tartrate [Lopressor] 50 mg PO BID 04/13/21 04/13/21 History Pravastatin Sodium [Pravachol] 10 mg PO HS 04/13/21 04/13/21 History Allergies Allergy/AdvReac Type Severity Reaction Status Date / Time No Known Allergies Allergy Verified 04/13/21 17:11 Physical Exam Vitals: Vital Signs Temp Pulse Pulse Resp BP Pulse Ox 04/15/21 14:00 98.0 F 55 L 16 152/64 94 L 04/15/21 08:00 98.2 F 62 18 162/68 99 04/15/21 02:15 98.1 F 62 17 165/77 96 04/14/21 19:50 98.9 F 65 18 166/67 96 Intake and Output 04/15/21 04/15/21 04/15/21 06:59 14:59 22:59 Intake Total 450 Balance 450 Intake: Intake, IV Titration 450 Amount Cefepime 1 gm In Sodium 50 Chloride 0.9% 50 ml @ 12. 5 mls/hr IVPB Q12HR [facility] Rx#:[id number] Sodium Chloride 0.9% 1, 400 000 ml @ 50 mls/hr IV . Q20H [facility] Rx#:[id number] Other: # Voids 2 - Constitutional General appearance: average body habitus, cooperative, no acute distress - EENT Eyes: anicteric sclerae, EOMI ENT: hearing grossly normal, normal oropharynx - Neck Neck: no lymphadenopathy - Respiratory Respiratory: bilateral: CTA - Cardiovascular Rhythm: regular Heart sounds: normal: S1, S2 leg Peripheral Edema: bilateral: 2+ - Gastrointestinal General gastrointestinal: no absent bowel sounds, no decreased bowel sounds, no distended, no hepatomegaly, no hyperactive bowel sounds, normal bowel sounds, no organomegaly, no rigid, no scaphoid, soft, no splenomegaly, no tenderness, no umbilical hernia, no ventral hernia - Integumentary BLE redness, LLE severe dry skin - Neurologic Neurologic: CNII-XII intact - Musculoskeletal Musculoskeletal: strength equal bilaterally - Psychiatric Psychiatric: A&O x's 3, appropriate affect Results CBC & Chem 7: 04/14/21 05:42 04/15/21 06:03 Labs: Microbiology - Last 24 Hours (Table) 04/14/21 05:42 Blood Culture - Preliminary Blood No Growth after 24 hours Venous US: report reviewed Assessment and Plan (1) Hx of deep venous thrombosis Current Visit: Yes Status: Chronic Priority: High Code(s): Z86.718 - PERSONAL HISTORY OF OTHER VENOUS THROMBOSIS AND EMBOLISM SNOMED Code(s): 021792739 (2) Chronic deep vein thrombosis (DVT) Current Visit: Yes Status: Chronic Priority: High Code(s): I82.509 - CHRONIC EMBOLISM AND THOMBOS UNSP DEEP VN UNSP LOW EXTRM SNOMED Code(s): 89573303476045785 (3) Cellulitis of right foot Current Visit: Yes Status: Acute Priority: High Code(s): L03.115 - CELLULITIS OF RIGHT LOWER LIMB SNOMED Code(s): 640993282 (4) Venous (peripheral) insufficiency Current Visit: Yes Status: Chronic Priority: High Code(s): I87.2 - VENOUS INSUFFICIENCY (CHRONIC) (PERIPHERAL) SNOMED Code(s): 83123532 Plan: Pt has Hx of DVT. Bilateral doppler reports chronic DVT in both legs. No acute DVT. Recommendation from Hematology would be for pt to be on full dose anticoagulation-on chart review pt RLE was neg for DVT 4 mo ago. Anemia work up ordered in anticipation of anticoagulation for baseline.
[2021-04-16] MEDS: FAMOTIDINE 20 MG TAB PO SCH ×2 (07:54→22:05)
[2021-04-16] MEDS: HEPARIN SODIUM,PORCINE/PF 5,000 UNIT/0.5 ML SYRINGE SQ SCH ×3 (07:54→23:56)
[2021-04-16] MEDS: ASPIRIN 81 MG PO SCH (07:54)
[2021-04-16] MEDS: amLODIPine 10 MG TAB PO SCH (07:55)
[2021-04-16] MEDS: METOPROLOL TARTRATE 50 MG TAB PO SCH ×2 (07:55→22:05)
[2021-04-16] MEDS: CEFEPIME 1 GM in SODIUM CHLORIDE 0.9% 50 ML IVPB SCH (07:55)
[2021-04-16] MEDS: MULTIVITAMINS, THERA 1 EACH TAB PO SCH (07:55)
[2021-04-16] MEDS: NYSTATIN 100,000UNIT/GM CREAM 30 GM TUBE TOPICAL SCH ×2 (07:56→22:05)
[2021-04-16] MEDS: TRIAMCINOLONE 0.1% CREAM 80 GM TUBE TOPICAL SCH ×2 (08:02→22:05)
--- NOTE | 2021-04-16 16:14 | P.PN ---
Subjective Progress Note Date: 04/16/21 Principal diagnosis: Chronic DVTS Objective - Vital Signs Vital signs: Vital Signs Temp 98.1 F 04/16/21 07:15 Pulse 70 04/16/21 07:15 Resp 18 04/16/21 07:15 BP 173/75 04/16/21 07:15 Pulse Ox 98 04/16/21 07:15 Intake & Output 04/15/21 04/16/21 04/16/21 18:59 06:59 18:59 Intake Total 450 Balance 450 Intake: Intake, IV Titration 450 Amount Cefepime 1 gm In Sodium 50 Chloride 0.9% 50 ml @ 12. 5 mls/hr IVPB Q12HR [facility] Rx#:[id number] Sodium Chloride 0.9% 1, 400 000 ml @ 50 mls/hr IV . Q20H [facility] Rx#:[id number] Other: Voiding Method Toilet Toilet Urinal Urinal Diaper Diaper # Voids 3 - Exam - Constitutional General appearance: average body habitus, cooperative, no acute distress - EENT Eyes: anicteric sclerae, EOMI ENT: hearing grossly normal, normal oropharynx - Neck Neck: no lymphadenopathy - Respiratory Respiratory: bilateral: CTA - Cardiovascular Rhythm: regular Heart sounds: normal: S1, S2 leg Peripheral Edema: bilateral: 2+ - Gastrointestinal General gastrointestinal: no absent bowel sounds, no decreased bowel sounds, no distended, no hepatomegaly, no hyperactive bowel sounds, normal bowel sounds, no organomegaly, no rigid, no scaphoid, soft, no splenomegaly, no tenderness, no umbilical hernia, no ventral hernia - Integumentary BLE redness, LLE severe dry skin - Neurologic Neurologic: CNII-XII intact - Musculoskeletal Musculoskeletal: strength equal bilaterally - Psychiatric Psychiatric: A&O x's 3, appropriate affect - Labs CBC & Chem 7: 04/14/21 05:42 04/16/21 05:16 Labs: Microbiology - Last 24 Hours (Table) 04/14/21 05:42 Blood Culture - Preliminary Blood No Growth after 48 hours Assessment and Plan Plan: Venous US: report reviewed Assessment and Plan (1) Hx of deep venous thrombosis Current Visit: Yes Status: Chronic Priority: High Code(s): Z86.718 - PERSONAL HISTORY OF OTHER VENOUS THROMBOSIS AND EMBOLISM SNOMED Code(s): 235767001 (2) Chronic deep vein thrombosis (DVT) Current Visit: Yes Status: Chronic Priority: High Code(s): I82.509 - CHRONIC EMBOLISM AND THOMBOS UNSP DEEP VN UNSP LOW EXTRM SNOMED Code(s): 20203011321502117 (3) Cellulitis of right foot Current Visit: Yes Status: Acute Priority: High Code(s): L03.115 - CELLULITIS OF RIGHT LOWER LIMB SNOMED Code(s): 091791900 (4) Venous (peripheral) insufficiency Current Visit: Yes Status: Chronic Priority: High Code(s): I87.2 - VENOUS INSUFFICIENCY (CHRONIC) (PERIPHERAL) SNOMED Code(s): 63485539 Plan: Pt has Hx of DVT. Bilateral doppler reports chronic DVT in both legs. No acute DVT. Recommendation from Hematology would be for pt to be on full dose anticoagulation RLE was neg for DVT 4 mo ago. Anemia work up ordered in anticipation of anticoagulation for baseline. today hemoglobin is stable >11. Will monitor Physician attest: I have completed the full history and physical and agree with above dictation, dictated as a ascribe.
--- NOTE | 2021-04-16 16:36 | PN ---
PROGRESS NOTE DATE OF SERVICE: 04/16/2021 REASON FOR FOLLOWUP: Right foot wound with secondary cellulitis. INTERVAL HISTORY: The patient is afebrile. The patient is breathing comfortably. Overall pain and discomfort to the right leg slightly decreased. No chest pain. No cough. No abdominal pain. No diarrhea. PHYSICAL EXAMINATION: Blood pressure is 151/70 with a pulse of 67. Temperature is 97.9. He is 97% on room air. General description is an elderly male up in the bed in no distress. Lower extremity swelling and redness has improved. Right foot . No drainage on the dressing. LABS: No new labs have been obtained today. Creatinine 0.98. Blood culture has been negative. DIAGNOSTIC IMPRESSION AND PLAN: Patient with right foot wound with cellulitis improvement on cefepime. Finish therapy with oral Keflex, local wound care with dry Aquacel silver dressing and to [facility]. Prescription sent to the pharmacy. MMODL / IJN: [id number] /
[2021-04-16] MEDS: CEFEPIME 2 GM in SODIUM CHLORIDE 0.9% 100 ML IVPB SCH (22:04)
[2021-04-16] MEDS: PRAVASTATIN SODIUM 20 MG TAB PO SCH (22:05)
[2021-04-16 22:22] LABS: Ferritin 168.4 ng/mL (22.0-322.0)
[2021-04-16 23:17] LABS: % Iron Saturation 10.7 (15.00-50.00)
[2021-04-17 07:29] VITALS: RESP 18
[2021-04-17] MEDS: HEPARIN SODIUM,PORCINE/PF 5,000 UNIT/0.5 ML SYRINGE SQ SCH (09:20)
[2021-04-17] MEDS: MULTIVITAMINS, THERA 1 EACH TAB PO SCH (09:20)
[2021-04-17] MEDS: ASPIRIN 81 MG PO SCH (09:20)
[2021-04-17] MEDS: FAMOTIDINE 20 MG TAB PO SCH (09:20)
[2021-04-17] MEDS: METOPROLOL TARTRATE 50 MG TAB PO SCH (09:20)
[2021-04-17] MEDS: amLODIPine 10 MG TAB PO SCH (09:20)
[2021-04-17] MEDS: TRIAMCINOLONE 0.1% CREAM 80 GM TUBE TOPICAL SCH (09:21)
[2021-04-17] MEDS: NYSTATIN 100,000UNIT/GM CREAM 30 GM TUBE TOPICAL SCH (09:21)
[2021-04-17 09:34] LABS: Methylmalonic Acid 0.21 umol/L (<0.40)
[2021-04-17] MEDS: CEPHALEXIN 500 MG CAP PO SCH ×2 (10:02→13:34)
[2021-04-17] MEDS: CEFEPIME 2 GM in SODIUM CHLORIDE 0.9% 100 ML IVPB SCH (10:03)
[2021-04-17 11:47] LABS: Basophils # (A) 0.07 X 10*3/uL (0.00-0.10); Basophils % (A) 1.1 %; Eosinophils # (A) 0.55 X 10*3/uL (0.04-0.35); HCT 40.1 % (39.6-50.0); HGB 12.8 g/dL (13.0-17.0); Lymphocytes # (A) 2.17 X 10*3/uL (0.90-5.00); Lymphocytes % (A) 35.6 %; MCH 30.3 pg (27.0-32.0); MCHC 31.9 g/dL (32.0-37.0); MCV 94.8 fL (80.0-97.0); Mean Platelet Volume 10.6 fL (9.5-12.2); Monocytes # (A) 0.48 X 10*3/uL (0.20-1.00); Monocytes % (A) 7.9 %; Neutrophils # (A) 2.77 X 10*3/uL (1.80-7.70); Neutrophils % (A) 45.6 %; Platelet Count 268 X 10*3/uL (140-440); RBC 4.23 X 10*6/uL (4.40-5.60); WBC 6.09 X 10*3/uL (4.50-10.00)
--- NOTE | 2021-04-17 12:40 | P.PN ---
Subjective Progress Note Date: 04/16/21 86 years old male with past medical history of hypertension, hyperlipidemia, COVID-19 infection, coronary artery disease. He was in this hospital from 01/01- 01/04 2021 for a right foot cellulitis. Patient was brought by his son to [facility] before he was transferred to [facility] because of painful and infection of his right leg and toe which was been going on for several weeks . 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 His right foot is swollen, red and tender He denies chest pain, no dyspnea, no abdominal pain or nausea vomiting. No headache or weakness or numbness Patient lives in apartment owned by his son. Smoking, alcohol or illicit drugs hemodynamically is a stable but blood pressure is elevated on admission 180/75 On reviewing the records from [facility], labs showing glucose elevated at 121, creatinine slightly elevated at 1.16. Sodium 137, potassium 4.1, bicarb is 28, calcium is 8.8 WBC is normal at 8.9, hemoglobin slightly low at 11.7, platelet count normal at 207. From the original hospital at [place] he was started on cefepime and IV vancomycin Objective - Vital Signs Vital signs: Vital Signs Temp 98.1 F 04/16/21 07:15 Pulse 70 04/16/21 07:15 Resp 18 04/16/21 07:15 BP 173/75 04/16/21 07:15 Pulse Ox 98 04/16/21 07:15 Intake & Output 04/15/21 04/16/21 04/16/21 18:59 06:59 18:59 Intake Total 450 Balance 450 Intake: Intake, IV Titration 450 Amount Cefepime 1 gm In Sodium 50 Chloride 0.9% 50 ml @ 12. 5 mls/hr IVPB Q12HR [facility] Rx#:[id number] Sodium Chloride 0.9% 1, 400 000 ml @ 50 mls/hr IV . Q20H [facility] Rx#:[id number] Other: Voiding Method Toilet Toilet Urinal Urinal Diaper Diaper # Voids 3 - Exam GENERAL: The patient is alert and oriented x3, not in any acute distress. Well developed, well nourished. HEENT: Pupils are round and equally reacting to light. EOMI. No scleral icterus. No conjunctival pallor. Normocephalic, atraumatic. No pharyngeal erythema. No thyromegaly. CARDIOVASCULAR: S1 and S2 present. No murmurs, rubs, or gallops. PULMONARY: Chest is clear to auscultation, no wheezing or crackles. ABDOMEN: Soft, nontender, nondistended, normoactive bowel sounds. No palpable organomegaly. MUSCULOSKELETAL: No joint swelling or deformity. -EXTREMITIES: No cyanosis, clubbing, or pedal edema. Right foot especially around the ankle is red, swollen , improving with less tender and warmth. NEUROLOGICAL: Gross neurological examination did not reveal any focal deficits. SKIN: No rashes. No petechiae - Labs CBC & Chem 7: 04/17/21 07:32 04/16/21 05:16 Labs: Microbiology - Last 24 Hours (Table) 04/14/21 05:42 Blood Culture - Preliminary Blood No Growth after 48 hours Assessment and Plan Assessment: Acute Right foot cellulitis . Rule out osteomyelitis Chronic bilateral DVT History of Nondisplaced fracture of the base of the fifth metatarsal. Recent history of COVID-19 infection Hearing disorder/deafness Possible chronic kidney disease stage III Hypertension Hyperlipidemia Previous history of smoking Plan: this is a pleasant 86 years old male who presents with a right foot cellulitis continue with antibiotics per ID team. Currently on cefepime and vancomycin has discontinued Discontinue IV fluid Consult hematology team for chronic DVT which may contribute for recurrent cellulitis Follow-up recommendation by ID team Labs and medication were reviewed.. Continue same treatment. Continue with symptomatic treatment. Resume home medication. Monitor lytes and vitals. DVT and GI prophylaxis. Further recommendations depends on the clinical course of the patient DVT prophylaxis: Subcutaneous heparin GI Prophylaxis: Pepcid Physical therapy: Recommended home care
[2021-04-17] MEDS ORDERED: APIXABAN 5 MG TAB PO SCH (12:45)
[2021-04-17 15:21] VITALS: BP 133/51; PULSE 71; TEMP 98.3
--- NOTE | 2021-04-17 16:33 | PN ---
PROGRESS NOTE DATE OF SERVICE: 04/17/2021 REASON FOR FOLLOWUP: Right lower extremity venostasis ulcer and cellulitis. INTERVAL HISTORY: The patient is afebrile. The patient is breathing comfortably. The patient is slightly upset and wants to go home. No chest pain, no shortness of breath or cough. No abdominal pain or diarrhea. PHYSICAL EXAMINATION: Blood pressure 154/71 with a pulse of 65, temperature 97.9. He is 94% on room air. General description is an elderly male lying in bed in no distress. Respiratory system: Unlabored breathing, clear to auscultation anteriorly. Heart S1, S2. Regular rate and rhythm. Abdomen soft, no tenderness. Right leg is wrapped up, no obvious drainage on the dressing. LABS: Hemoglobin 12.6, white count 6.09. DIAGNOSTIC IMPRESSION AND PLAN: Patient with right foot and leg ulceration and cellulitis. The patient has shown overall improvement with cefepime, will be treated with oral Keflex, local wound care with Aquacel Silver dressing, Nick wrap and advised to follow up in the [facility]. Questions and concerns were answered. MMODL / IJN: [id number] /
--- NOTE | 2021-04-17 18:17 | P.PN ---
Subjective Progress Note Date: 04/17/21 Principal diagnosis: Chronic DVTS Plan for discharge today, Eliquis has been added to discharge. Objective - Vital Signs Vital signs: Vital Signs Temp 98.3 F 04/17/21 14:06 Pulse 71 04/17/21 14:06 Resp 18 04/17/21 14:06 BP 133/51 04/17/21 14:06 Pulse Ox 96 04/17/21 14:06 Intake & Output 04/16/21 04/17/21 04/17/21 18:59 06:59 18:59 Other: Voiding Method Toilet Toilet Toilet Urinal Urinal Urinal Diaper Diaper Diaper # Voids 4 2 - Exam - Constitutional General appearance: average body habitus, cooperative, no acute distress - EENT Eyes: anicteric sclerae, EOMI ENT: hearing grossly normal, normal oropharynx - Neck Neck: no lymphadenopathy - Respiratory Respiratory: bilateral: CTA - Cardiovascular Rhythm: regular Heart sounds: normal: S1, S2 leg Peripheral Edema: bilateral: 2+ - Gastrointestinal General gastrointestinal: no absent bowel sounds, no decreased bowel sounds, no distended, no hepatomegaly, no hyperactive bowel sounds, normal bowel sounds, no organomegaly, no rigid, no scaphoid, soft, no splenomegaly, no tenderness, no umbilical hernia, no ventral hernia - Integumentary BLE redness, LLE severe dry skin - Neurologic Neurologic: CNII-XII intact - Musculoskeletal Musculoskeletal: strength equal bilaterally - Psychiatric Psychiatric: A&O x's 3, appropriate affect - Labs CBC & Chem 7: 04/17/21 07:32 04/16/21 05:16 Labs: Abnormal Lab Results - Last 24 Hours (Table) 04/15/21 04/17/21 Range/Units 06:03 07:32 RBC 4.23 L (4.40-5.60) X 10*6/uL Hgb 12.8 L (13.0-17.0) g/dL MCHC 31.9 L (32.0-37.0) g/dL Immature Gran # 0.05 H (0.00-0.04) X 10*3/uL Eosinophils # 0.55 H (0.04-0.35) X 10*3/uL Iron 26 L (65-175) ug/dL % Saturation 10.70 L (15.00-50.00) Microbiology - Last 24 Hours (Table) 04/14/21 05:42 Blood Culture - Preliminary Blood No Growth after 72 hours Assessment and Plan Plan: Venous US: report reviewed Assessment and Plan (1) Hx of deep venous thrombosis Current Visit: Yes Status: Chronic Priority: High Code(s): Z86.718 - PERSONAL HISTORY OF OTHER VENOUS THROMBOSIS AND EMBOLISM SNOMED Code(s): 908232810 (2) Chronic deep vein thrombosis (DVT) Current Visit: Yes Status: Chronic Priority: High Code(s): I82.509 - CHRONIC EMBOLISM AND THOMBOS UNSP DEEP VN UNSP LOW EXTRM SNOMED Code(s): 01775727062436051 (3) Cellulitis of right foot Current Visit: Yes Status: Acute Priority: High Code(s): L03.115 - CELLULITIS OF RIGHT LOWER LIMB SNOMED Code(s): 865871109 (4) Venous (peripheral) insufficiency Current Visit: Yes Status: Chronic Priority: High Code(s): I87.2 - VENOUS INSUFFICIENCY (CHRONIC) (PERIPHERAL) SNOMED Code(s): 58366342 Plan: Pt has Hx of DVT. Bilateral doppler reports chronic DVT in both legs. No acute DVT. Recommendation from Hematology would be for pt to be on full dose anticoagulation RLE was neg for DVT 4 mo ago. Anemia work up ordered in anticipation of anticoagulation for baseline. today hemoglobin remains stable >11. Will monitor as outpatient as well Patient may follow-up with hematology as outpatient in 3-[address] Watson
== END 2021-04-17 16:54 | disposition home or self-care (01) | DRG 603 ==
LOC: EC 13:27 → 4SSUR 14:47
PROVIDERS: ADMIT Internal Medicine; ATTEND Internal Medicine
DX: L03.115 Cellulitis of right lower limb (principal); I82.513 Chronic embolism and thrombosis of femoral vein, bilateral; I87.8 Other specified disorders of veins; I87.003 Postthrombotic syndrome without complications of bilateral lower extremity; I12.9 Hypertensive chronic kidney disease with stage 1 through stage 4 chronic kidney disease, or unspecified chronic kidney disease; I25.10 Atherosclerotic heart disease of native coronary artery without angina pectoris; N18.30 Chronic kidney disease, stage 3 unspecified; L03.116 Cellulitis of left lower limb; E78.5 Hyperlipidemia, unspecified; H91.90 Unspecified hearing loss, unspecified ear; Z86.16 Personal history of COVID-19; Z79.82 Long term (current) use of aspirin; Z79.899 Other long term (current) drug therapy; Z87.891 Personal history of nicotine dependence; Z87.81 Personal history of (healed) traumatic fracture; Z79.2 Long term (current) use of antibiotics
CPT/HCPCS: 80053; 82565; 82607; 82728; 82747; 83540; 83550; 83735; 83921; 85025; 85652; 86140; 87040; 93970; 96360; 96361; 99284